=== PATIENT | female | born 1930 | race Caucasian/White ===

== ENCOUNTER 2016-09-26 12:49 | Inpatient (IN) | payer BC, MEDICARE ==
[2016-09-26 16:44] LABS: Comments Flag Yes; Hematocrit 19 % (35-47); Mean Corpuscular HGB Conc 31 g/dl (31-36); Mean Corpuscular Hemoglobin 29 pg (27-31); Mean Corpuscular Volume 93 fL (80-97); Mean Platelet Volume 8 um3 (7.4-10.4); Red Blood Count 2.09 10^6/ul (4.0-5.4); Red Cell Distribution Width 15 % (10.5-15); White Blood Count 9.1 10^3/ul (3.5-10.8)
[2016-09-26 16:45] LABS: Add Diff/Slide Review? Slide Review Added
[2016-09-26 16:47] LABS: Hemoglobin 6.1 g/dl (12.0-16.0)
[2016-09-26 16:50] LABS: Albumin 3.7 g/dL (3.2-5.2); BUN/Creatinine Ratio 27.3 (8-20); Calcium 9.9 mg/dL (8.6-10.3); EGFR African American 25.8 (>60); EGFR Non-African American 20.1 (>60); Globulin 3.3 g/dL (2-4); Potassium 4.9 mmol/L (3.5-5.0); Total Bilirubin 0.7 mg/dL (0.2-1.0)
--- NOTE | 2016-09-26 16:58 | RAD ---
INDICATION: Weakness. COMPARISON: Comparison is made with a prior chest x-ray study from January 09, 2006. TECHNIQUE: A portable view of the chest was obtained. FINDINGS: The heart is enlarged and unchanged from the prior study. The lungs are clear. No pleural effusion is seen. IMPRESSION: CARDIOMEGALY, UNCHANGED.
[2016-09-26] MEDS ORDERED: Ondansetron INJ* 2 MG/ML VIAL IV PRN (17:24)
[2016-09-26] MEDS ORDERED: Pantoprazole IV* 80 MG in NS 0.9% 250 ML* 250 ML IVPB ONE (17:24)
[2016-09-26] MEDS ORDERED: Phytonadione Oral Solution* 5 MG/25 ML UDC PO ONE (17:24)
[2016-09-26] MEDS ORDERED: Acetaminophen TAB* 325 MG PO PRN (17:24)
[2016-09-26] MEDS ORDERED: NS 0.9% 1000 ML* 1,000 ML IV SCH (17:30)
[2016-09-26] MEDS ORDERED: Pantoprazole IV* 40 MG IV ONE (17:30)
[2016-09-26] MEDS ORDERED: Pantoprazole IV* 80 MG in NS 0.9% 250 ML* 250 ML IVPB SCH (18:00)
[2016-09-26 18:20] LABS: Hypochromasia 3+
--- NOTE | 2016-09-26 20:08 | HP ---
HISTORY AND PHYSICAL:* ADDENDUM: Ms. Chen is an 86-year-old female, who is currently on Coumadin with an INR of 4, who had been having problems with anemia and today presented with hemoglobin of 6, complaining of dizziness. She also is on chronic prednisone for polymyalgia rheumatica. The patient is going to be admitted to the hospital. GI specialist is going to be consulted. For further details of the patient's admission and plan, please see history and physical dictated by Derrick Muniz NP, on 09/26/16, with which I agree. [id number]/[facility] #: [id number] MTDD
[2016-09-26] MEDS: Pantoprazole IV* 80 MG in NS 0.9% 250 ML* 250 ML IVPB SCH (20:24)
--- NOTE | 2016-09-26 21:14 | HP ---
CC: Dr. Caba; Dr. Arias * HISTORY AND PHYSICAL: DATE OF ADMISSION: 09/26/16 PRIMARY CARE PROVIDER: Dr. Caba. CONSULTING CORONER TECHNICIAN: Dr. Arias. ATTENDING PHYSICIAN: Vikki Flynn MD * (dictated by Derrick Muniz NP) CHIEF COMPLAINT: 1. Weakness. 2. Dark stools. HISTORY OF PRESENT ILLNESS: Ms. Chen is an 86-year-old female patient. She says for the last 5 to 6 weeks, she has had progressive worsening weakness. She has noticed that particularly after she had some company several weeks ago. She had some more weakness. She went to her primary back in July and it was noted that her hemoglobin was 9. She does state that she takes chronic steroids for polymyalgia rheumatica. She was on warfarin for irregular heartbeat. She has a history of stroke. The patient says that for the last few days though she has had progressive worsening weakness, dyspnea on exertion. The friend has noticed that she has been pale and with minimal exertion, she has been very fatigued. The patient says that at times, a couple of weeks ago, she noticed a tarry stool. She has also noticed at times though she has had bright red blood per rectum. She denies any abdominal pain. Denies any nausea, vomiting. No dysuria, no frequency. There is no loss of consciousness. No pruritus, no skin ulceration. She denied having any recent changes in medications. She says she has been taking her warfarin as prescribed. She came in, went to her primary today, they did note that her hemoglobin was 5.9, and they sent to her to the emergency room for evaluation. Here, it was noted her hemoglobin was 6.1, we were asked to evaluate for possible GI bleed. PAST MEDICAL HISTORY: Significant for: 1. AFib. 2. CVA. 3. Hypertension. 4. CKD. 5. PMR. PAST SURGICAL HISTORY: Denied. MEDICATIONS: Home meds according to the list that was provided include: 1. Prednisone 1 mg daily. 2. Warfarin 5 mg Thursday, Thursday, and Thursday. 3. Warfarin 2 mg p.o. Thursday and . 4. Spironolactone/hydrochlorothiazide 2 tablets p.o. q.a.m. 5. Nifedipine 60 mg daily. 6. Multivitamin 1 tablet daily. 7. Claritin 10 mg p.o. daily as needed. 8. Vitamin D 1000 units p.o. daily. 9. Atenolol 150 mg p.o. daily. 10. Aspirin 81 mg daily. ALLERGIES TO MEDICATIONS: Include no known drug allergies. FAMILY HISTORY: Her father had history of liver cancer. Mother's history is reviewed and noncontributory. SOCIAL HISTORY: She does not smoke, she does not drink. Surrogate decision maker is her son, Keyon. REVIEW OF SYSTEMS: There is no documented fever. She denied having any significant weight change. There was no double vision. She denies having any ear discharge. There is no rhinorrhea. There is no sore throat. No thyroid enlargement. She denies having any chest pain. There was no orthopnea. There is dyspnea on exertion. There is no abdominal pain. No nausea, no vomiting. No dysuria, no frequency. No seizure, no loss of consciousness. No pruritus and no skin ulcerations. Review of 14 systems completed, all others negative. PHYSICAL EXAMINATION GENERAL: At this time, Ms. Chen is an 86-year-old female patient. She is sitting in the ER stretcher. She does appear to be pale. She does not appear to be in any acute distress. VITAL SIGNS: Reveal blood pressure 107/52 with a pulse 72, respirations 18, O2 sat 100%, temperature 97.8. HEENT: Head: Atraumatic, normocephalic. Eyes: EOMs are intact. Sclerae were pale, were anicteric. Throat: Oral mucosa appeared to be dry. No oropharyngeal erythema. NECK: Supple. LUNGS: Clear to auscultation. No wheezes, rales, or rhonchi. HEART: Sounds S1, S2. Regular rate and rhythm. No murmurs, rubs, or gallops. ABDOMEN: Soft, flat, nontender. Bowel sounds present. EXTREMITIES: Pulses 2+ throughout. Able to move all 4 extremities with 5/5 strength. NEUROLOGIC: The patient is awake, she is alert, and she is oriented x3. Tongue midline. Cotton Baler were equal. No gross focal deficits. RECTAL: Did reveal maroon color stool. SKIN: Intact. DIAGNOSTIC STUDIES/LAB DATA: Labs today revealed a WBC of 9.1, RBC of 2.09, hemoglobin 6.1, hematocrit of 19, platelet count of 343. INR 3.84, PTT of 40.1. Sodium 135; potassium 4.9; chloride of 107; bicarb 19; BUN 53; creatinine is 2.31, I do see that from her previous labs in July, her creatinine was 2.3; glucose 126; calcium 9.9. Total bili 0.7, AST 21, ALT 13, alk phos 56. Albumin 3.7. She did have an EKG obtained today, which does show an atrial fibrillation at the rate of 70, no ST elevation or T-wave inversion. It was reviewed to the previous EKG, she does appear to be in AFib in the past, it was also noted on her note. She had chest x-ray obtained today that showed cardiomegaly, no acute infiltrates were noted. Old medical records were reviewed. ASSESSMENT AND PLAN: Ms. Chen is an 86-year-old female patient who is coming into the ER today with complaints of not feeling well, feeling fatigued, and on evaluation found to have anemia and concern for gastrointestinal bleed. She will be admitted under inpatient status for: 1. Acute blood loss anemia secondary to gastrointestinal bleed. I suspect at this point, she most probably has a mixed gastrointestinal bleed. It could be a portion in upper or could also be a lower gastrointestinal bleed. She did have maroon stools on exam. I did touch base with Dr. Arias, will maintain 2 IVs, Protonix drip, clear liquid diet. He will evaluate tomorrow. Serial H and Hs. I am going to give her 2 units of blood now. She is hemodynamically stable. 2. Atrial fibrillation. Her INR is supratherapeutic. We are going to go ahead and hold her Coumadin. She is rate controlled. When able, we will get her back on her nifedipine and we will continue to follow. 3. Cerebrovascular accident. Continue with secondary prevention. We are holding the aspirin for the time being. 4. Hypertension. In the setting of acute illness, I am going to hold her blood pressure meds. 5. Chronic kidney disease. Her creatinine appears to be stable. We will monitor. 6. Polymyalgia rheumatica. In the setting of acute bleed, I am going to hold the prednisone. If her pressures do become soft, I will certainly go ahead and put her on stress-dose steroids. 7. Code status. Full code. 8. Fluids, electrolytes, and nutrition. She can have a clear liquid diet. 9. DVT prophylaxis. Because of the active bleeding, she will be placed on SCDs. TIME SPENT: On the admission was 60 minutes; greater than half the time was spent [id number] with the patient obtaining my history and physical, other half the time spent going over the plan of care with the patient and implementing plan of care. I did discuss the plan of care with my attending, Dr. Flynn; she is in agreement. DERRICK MUNIZ NP ADDENDUM: Ms. Chen is an 86-year-old female, who is currently on Coumadin with an INR of 4 , who had been having problems with anemia and today presented with hemoglobin of 6, complaining of dizziness. She also is on chronic prednisone for polymyalgia rheumatica. The patient is going to be admitted to the hospital. GI specialist is going to be consulted. For further details of the patient's admission and plan, please see history and physical dictated by Derrick Muniz NP, on 09/26/16, with which I agree. VIKKI FLYNN MD [id number]/[facility] #: [id number]/[facility] #: [id number] OSWALD
[2016-09-27 02:19] LABS: Hematocrit 22 % (35-47); Hemoglobin 6.9 g/dl (12.0-16.0)
--- NOTE | 2016-09-27 02:21 | ED ---
Karla Magallanes Alfonso, scribed for Yandy Das MD on 09/26/16 at 1619 . Syncope/Near Syncope - HPI Summary HPI Summary: This patient is an 86 year old BIBA accompanied by a friend to [facility] c/o worsened generalized weakness for the last 6 weeks. She states she is dizzy. She reports standing from a chair and not being able to walk for more than 3 steps. Friend states a change in medication may have aggravated the patient's symptoms. Pt was sent to ED today by her PCP for drop in her blood count. Pt is on warfarin for afib and take prednisone for polymyalgia rheumatica. - History Of Current Complaint Chief Complaint: EDBleedingDisorder Hx Obtained From: Patient, Other: - Friend Onset/Duration: Sudden Onset, Lasting Weeks - 6 weeks, Worse Since Timing: Constant Activity At Onset: Unknown Associated Head Trauma: No Aggravating Factor(s): Other - Standing from a chair and possibily change in medication. Alleviating Factor(s): Nothing Associated Signs And Symptoms: Dizzy, Other - dark stool - Allergies/Home Medications Allergies/Adverse Reactions: Allergies Allergy/AdvReac Type Severity Reaction Status Date / Time No Known Allergies Allergy Verified 09/26/16 17:06 Home Medications: Home Medications Aspirin EC Low Dose* [Ecotrin EC Low Dose 81 MG*] 81 mg PO DAILY 09/26/16 [ History Confirmed 09/26/16] Atenolol [Tenormin 100 MG] 150 mg PO DAILY 09/26/16 [History Confirmed 09/26/16] Cholecalciferol TAB* [Vitamin D TAB*] 1,000 unit PO DAILY 09/26/16 [History Confirmed 09/26/16] LoraTADine TAB(NF) [Claritin 10 MG TAB(NF)] 10 mg PO DAILY PRN 09/26/16 [ History Confirmed 09/26/16] Multivitamins/Minerals TAB* [Theragran/minerals TAB*] 1 tab PO DAILY 09/26/16 [ History Confirmed 09/26/16] Nifedipine [Adalat cc] 60 mg PO DAILY 09/26/16 [History Confirmed 09/26/16] Spironolactone/HCTZ 25-25 MG* [Aldactazide 25-25*] 2 tab PO QAM 09/26/16 [ History Confirmed 09/26/16] Warfarin TAB(*) [Coumadin TAB(*)] 2 mg PO TUTH 09/26/16 [History Confirmed 09/26] Warfarin TAB(*) [Coumadin TAB(*)] 5 mg PO MOWEFR 09/26/16 [History Confirmed 01/04] predniSONE TAB* [Deltasone TAB*] 1 mg PO DAILY 09/26/16 [History Confirmed 09/26] PMH/Surg Hx/FS Hx/Imm Hx Endocrine/Hematology History: Reports: Hx Anticoagulant Therapy - ASA, Autoimmune Disease - PMR Cardiovascular History: Reports: Hx Hypercholesterolemia, Hx Hypertension Infectious Disease History: No Infectious Disease History: Denies: Traveled Outside the [place] in Last 30 Days - Family History Known Family History: Positive: Other - father with liver cancer - Social History Lives: Alone Alcohol Use: None Substance Use Type: Reports: None Smoking Status (MU): Never Smoked Tobacco Review of Systems Positive: Fatigue Eyes: Negative ENT: Negative Cardiovascular: Negative Respiratory: Negative Positive: Other - dark stool Genitourinary: Negative Musculoskeletal: Negative Skin: Negative Neurological: Other - Dizzy Positive: Weakness - generalized All Other Systems Reviewed And Are Negative: Yes Physical Exam Triage Information Reviewed: Yes Vital Signs On Initial Exam: Initial Vitals Temp Pulse Resp BP Pulse Ox 98.6 F 82 20 110/46 100 09/26/16 13:19 09/26/16 13:19 09/26/16 13:19 09/26/16 13:19 09/26/16 13:19 Vital Signs Reviewed: Yes Appearance: Positive: No Pain Distress, Well-Nourished, Ill-Appearing Skin: Positive: Pale Eyes: Positive: Conjunctiva Clear ENT: Positive: Normal ENT inspection Neck: Positive: Supple Respiratory/Lung Sounds: Positive: Clear to Auscultation, Breath Sounds Present , Other - No respiratory distress Cardiovascular: Positive: Pulses are Symmetrical in both Upper and Lower Extremities, IRR, Other - Brisk capillary refill. Negative: Murmur Abdomen Description: Positive: Nontender, No Organomegaly, Soft. Negative: Distended, Guarding, McBurney's Point Tenderness, Peritoneal Signs, Pulsatile Mass, Splenomegaly Bowel Sounds: Positive: Present Musculoskeletal: Positive: Strength/ROM Intact Neurological: Positive: Alert, Oriented to Person Place, Time, Other - Alert, muscle tone normal. Negative: Facial Droop, Focal Deficit @, Slurred Speech Diagnostics - Vital Signs Vital Signs Temp Pulse Resp BP Pulse Ox 09/26/16 14:30 97.8 F 71 18 108/46 100 09/26/16 13:19 98.6 F 82 20 110/46 100 - Laboratory Lab Results: Lab Results 09/26/16 09/26/16 09/26/16 Range/Units 16:05 16:05 16:05 WBC 9.1 (3.5-10.8) 10^3/ul RBC 2.09 L (4.0-5.4) 10^6/ul Hgb 6.1 L* (12.0-16.0) g/dl Hct 19 L (35-47) % MCV 93 (80-97) fL MCH 29 (27-31) pg MCHC 31 (31-36) g/dl RDW 15 (10.5-15) % Plt Count 343 (150-450) 10^3/ul MPV 8 (7.4-10.4) um3 Neut % (Auto) 82.0 (38-83) % Lymph % (Auto) 12.1 L (25-47) % Hamlin % (Auto) 5.3 (1-9) % Eos % (Auto) 0 (0-6) % Baso % (Auto) 0.6 (0-2) % Absolute Neuts (auto) 7.5 (1.5-7.7) 10^3/ul Absolute Lymphs (auto) 1.1 (1.0-4.8) 10^3/ul Absolute Monos (auto) 0.5 (0-0.8) 10^3/ul Absolute Eos (auto) 0 (0-0.6) 10^3/ul Absolute Basos (auto) 0.1 (0-0.2) 10^3/ul Absolute Nucleated RBC 0.01 10^3/ul Nucleated RBC % 0.1 Normal RBC Morphology Not Reportable Hypochromasia 3+ INR (Anticoag Therapy) 3.84 H (0.89-1.11) APTT 40.1 H (26.0-36.3) seconds Sodium 135 (133-145) mmol/L Potassium 4.9 (3.5-5.0) mmol/L Chloride 107 (101-111) mmol/L Carbon Dioxide 19 L (22-32) mmol/L Anion Gap 9 (2-11) mmol/L BUN 63 H (6-24) mg/dL Creatinine 2.31 H (0.51-0.95) mg/dL Est GFR ( Amer) 25.8 (>60) Est GFR (Non-Af Amer) 20.1 (>60) BUN/Creatinine Ratio 27.3 H (8-20) Glucose 126 H (70-100) mg/dL Calcium 9.9 (8.6-10.3) mg/dL Total Bilirubin 0.70 (0.2-1.0) mg/dL AST 21 (13-39) U/L ALT 13 (7-52) U/L Alkaline Phosphatase 56 (34-104) U/L Total Protein 7.0 (6.4-8.9) g/dL Albumin 3.7 (3.2-5.2) g/dL Globulin 3.3 (2-4) g/dL Albumin/Globulin Ratio 1.1 (1-3) Blood Type Antibody Screen Crossmatch 09/26/16 Range/Units 16:05 WBC (3.5-10.8) 10^3/ul RBC (4.0-5.4) 10^6/ul Hgb (12.0-16.0) g/dl Hct (35-47) % MCV (80-97) fL MCH (27-31) pg MCHC (31-36) g/dl RDW (10.5-15) % Plt Count (150-450) 10^3/ul MPV (7.4-10.4) um3 Neut % (Auto) (38-83) % Lymph % (Auto) (25-47) % Hamlin % (Auto) (1-9) % Eos % (Auto) (0-6) % Baso % (Auto) (0-2) % Absolute Neuts (auto) (1.5-7.7) 10^3/ul Absolute Lymphs (auto) (1.0-4.8) 10^3/ul Absolute Monos (auto) (0-0.8) 10^3/ul Absolute Eos (auto) (0-0.6) 10^3/ul Absolute Basos (auto) (0-0.2) 10^3/ul Absolute Nucleated RBC 10^3/ul Nucleated RBC % Normal RBC Morphology Hypochromasia INR (Anticoag Therapy) (0.89-1.11) APTT (26.0-36.3) seconds Sodium (133-145) mmol/L Potassium (3.5-5.0) mmol/L Chloride (101-111) mmol/L Carbon Dioxide (22-32) mmol/L Anion Gap (2-11) mmol/L BUN (6-24) mg/dL Creatinine (0.51-0.95) mg/dL Est GFR ( Amer) (>60) Est GFR (Non-Af Amer) (>60) BUN/Creatinine Ratio (8-20) Glucose (70-100) mg/dL Calcium (8.6-10.3) mg/dL Total Bilirubin (0.2-1.0) mg/dL AST (13-39) U/L ALT (7-52) U/L Alkaline Phosphatase (34-104) U/L Total Protein (6.4-8.9) g/dL Albumin (3.2-5.2) g/dL Globulin (2-4) g/dL Albumin/Globulin Ratio (1-3) Blood Type O Positive Antibody Screen Negative Crossmatch See Detail Result Diagrams: 09/26/16 16:05 09/26/16 16:05 Lab Statement: Any lab studies that have been ordered have been reviewed, and results considered in the medical decision making process. - Radiology CXR Xray Interpretation: No Acute Changes - Cardiomegaly unchanged Radiology Interpretation Completed By: Radiologist - EKG 1638 Cardiac Rate: NL - 70 bpm EKG Rhythm: Atrial Fibrillation EKG Interpretation: Nl IV CT, Q wave in lead 3, no acute changes Course/Dx Assessment/Plan: Pt is an 86 y/o F BIBA who presents to ED c/o worsening generalized weakness for 6 weeks as well as acute dizziness. Friends reports a recent change in medications, which may have aggravated sx. Hgb 6.1. RBC 2.09. Hct 19. CXR reveal no acute findings. EKG reveals A-Fib. Pt to be admitted for further evaluation and treatment of severe probable blood loss anemia with supratherapeutic INR while on ASA, warfarin and prednisone. Allergies noted. Patient medications reviewed this visit. - Diagnoses Differential Diagnosis/HQI/PQRI: Positive: GI Bleed, Hypovolemia, Medication Reaction Provider Diagnoses: Anemia, Supratherapeutic INR, Vertigo - Physician Notifications Instructed by Provider To: Admit As Inpatient - Critical Care Time Critical Care Time: 30-74 min Discharge - Discharge Plan Condition: Stable Disposition: ADMITTED TO [facility] The documentation as recorded by the Karla lai Alfonso accurately reflects the service I personally performed and the decisions made by Thiago bob Barbara J, MD.
[2016-09-27 02:26] LABS: Comments Flag Yes
[2016-09-27 06:08] LABS: Hematocrit 22 % (35-47); Hemoglobin 7.3 g/dl (12.0-16.0); Mean Corpuscular HGB Conc 32 g/dl (31-36); Mean Corpuscular Hemoglobin 30 pg (27-31); Mean Corpuscular Volume 92 fL (80-97); Mean Platelet Volume 9 um3 (7.4-10.4); Red Blood Count 2.45 10^6/ul (4.0-5.4); Red Cell Distribution Width 15 % (10.5-15); White Blood Count 6.3 10^3/ul (3.5-10.8)
[2016-09-27 06:22] LABS: BUN/Creatinine Ratio 27.7 (8-20); EGFR African American 29.4 (>60); EGFR Non-African American 22.9 (>60); Potassium 3.7 mmol/L (3.5-5.0)
[2016-09-27] MEDS: Pantoprazole IV* 80 MG in NS 0.9% 250 ML* 250 ML IVPB SCH ×2 (06:53→18:36)
[2016-09-27] MEDS ORDERED: Phytonadione Oral Solution* 5 MG/25 ML UDC PO ONE (13:00)
--- NOTE | 2016-09-27 13:33 | CONS ---
GASTROENTEROLOGY CONSULT: DATE: 09/27/16 CONSULTING PHYSICIAN: Vikki Flynn REASON FOR CONSULTATION: GI bleed and atrial fibrillation, on warfarin, with presenting INR of 3.84. HISTORY: This very pleasant 86-year-old woman, who has never had gastrointestinal problems in general and has never had endoscopy, says that she began feeling short of breath with exertion and dizzy about 3 weeks ago. Her stool would be intermittently dark. She will intermittently see a little red blood in it. It would be dark. There was no abdominal pain. Her appetite was still okay and she had no nausea or vomiting. The weakness just became so severe that her friend insisted that she go to the primary office and she was sent to the emergency room when her hemoglobin was 6. Since admission, she has not had bowel movement for the first 16 hours, but then just, within the last hour, passed a small stool with a little bit of red blood around the edge. She has received 2 units of transfusion and her hemoglobin went from 6.1 to 6.9 to 7.3. She has not been feeling dizzy. She has been feeling better. She was given vitamin K and repeat INR was 3.15. BUN was 63, creatinine 2.31 on admission. Again, she has never had endoscopy or colonoscopy. She has not had any surgery other than a . PAST MEDICAL HISTORY: 1. Hypertension - Emergency room visit in 2005 and admission where AFib was found. 2. Atrial fibrillation - placed on warfarin then. She has not had any obvious problems with it. She does not recall any intervals of having to skip it for multiple days or being given vitamin K. 3. Status post . 4. Polymyalgia rheumatica - on prednisone for a number of years, currently 1 mg. SOCIAL HISTORY: She is retired, , and has one son who is at [employer] in animal science - nutrition ([employer] 1976). She has a friend who looks in on her, Savi Harper, who was her banker originally. FAMILY HISTORY: Her father had a liver cancer, expiring at age 79, "even though he did not drink a day in his life." REVIEW OF SYSTEMS: No history of prior syncope, palpitations, PA, valvular disease, congestive failure, hepatitis, jaundice, TB, or hemoptysis. PHYSICAL EXAMINATION: She is an elderly woman, quite alert, moderately overweight, in no distress. She is oriented x3, and tries to get her friend to answer the questions, but she is really pretty good with the answers if she is given a little time. HEENT exam is unremarkable. Again, she is pale. She has no adenopathy. Her lungs are clear and heart sounds are regular. Breast and pelvic exams are deferred. The abdomen is symmetric, obese, soft, and without tenderness. Rectal deferred to the procedure. Extremities show no edema. IMPRESSION: Gastrointestinal bleeding in a patient on warfarin that is over therapeutic, she will get that reversed, and has all signs point to an upper source with her being on prednisone and a baby aspirin and BUN being up. Endoscopy will be done once her INR is much better. Whether to do a f/u colonoscopy will depend on her hemoccult status. [id number]/[facility] #: [id number] OSWAL[facility]
--- NOTE | 2016-09-27 14:53 | PN ---
Subjective Date of Service: 09/27/16 Interval History: Patient seen and examined at bedside. Pt states that she is feeling better when compared to her arrival. Denies fever, chills, lightheadedness or dizziness, shortness of breath, chest discomfort, and N/V/D. Pt reports continued bright red blood in a stool she had earlier today. She also reports dark stools prior to her admission. Tele: Afib/flutter,rate 70-80's. Family History: Unchanged from Admission Social History: Unchanged from Admission Past Medical History: Unchanged from Admission Objective Active Medications: Acetaminophen (Tylenol Tab*) 650 mg PO Q4H PRN Reason: FEVER/PAIN Sodium Chloride (Ns 0.9% 1000 Ml*) 1,000 mls @ 100 mls/hr IV PER RATE RODRIGO Pantoprazole Sodium 80 mg/ (Sodium Chloride) 250 mls @ 25 mls/hr IVPB Q10H RODRIGO Ondansetron HCl (Zofran Inj*) 4 mg IV Q6H PRN Reason: NAUSEA Vital Signs 09/26/16 09/26/16 09/26/16 19:20 19:29 20:00 Temperature 97.2 F 97.2 F Pulse Rate 89 89 Respiratory 16 16 16 Rate Blood Pressure 129/96 129/96 (mmHg) O2 Sat by Pulse 100 100 Oximetry 09/26/16 09/26/16 09/26/16 21:50 22:18 23:57 Temperature 97.7 F 97.8 F Pulse Rate 87 68 Respiratory 17 20 Rate Blood Pressure 126/53 108/36 (mmHg) O2 Sat by Pulse 97 100 98 Oximetry 09/27/16 09/27/16 09/27/16 03:13 07:23 08:00 Temperature 97.7 F Pulse Rate 95 68 Respiratory 20 18 16 Rate Blood Pressure 132/45 127/41 (mmHg) O2 Sat by Pulse 100 98 Oximetry 09/27/16 09/27/16 08:44 11:30 Temperature Pulse Rate 84 Respiratory 18 Rate Blood Pressure 133/44 (mmHg) O2 Sat by Pulse 100 98 Oximetry Oxygen Devices in Use Now: None Appearance: NAD, laying in bed Eyes: No Scleral Icterus Ears/Nose/Mouth/Throat: Mucous Membranes Moist Respiratory: Symmetrical Chest Expansion and Respiratory Effort, Clear to Auscultation Cardiovascular: NL Sounds; No Murmurs; No JVD, RRR Abdominal: NL Sounds; No Tenderness; No Distention Extremities: No Edema Skin: No Rash or Ulcers Neurological: Alert and Oriented x 3 Lines/Tubes/Other Access: Clean, Dry and Intact Peripheral IV - site benign Nutrition: Taking PO's Result Diagrams: 09/27/16 15:30 09/27/16 05:19 Additional Lab and Data: Microbiology and Other Data: Microbiology 09/26/16 17:09 Stool Occult Blood (SHY) - Final Stool Assess/Plan/Problems-Billing Assessment: Ms. Chen is an 86 yo female with PMH significant for afib, HTN, CKD and PMR who presented to the emergency room with complaints of fatigue and upon evaluation was found to be anemic with concern for a GI bleed. - Patient Problems (1) GI bleed Code(s): K92.2 - GASTROINTESTINAL HEMORRHAGE, UNSPECIFIED SNOMED Code(s): 53674029 Comment: - Pt recieved 2 units RBCs last night - HH stable - GI consult, input appreciated - Plan for EGD in AM - Continue Protonix gtt (2) Afib Code(s): I48.91 - UNSPECIFIED ATRIAL FIBRILLATION SNOMED Code(s): 47989535 Comment: - Rate controlled - INR is supratherapeutic, received a dose of Vit k last night and another one today - Will consider resuming metoprolol in AM with hold parameters (3) HTN (hypertension) Code(s): I10 - ESSENTIAL (PRIMARY) HYPERTENSION SNOMED Code(s): 83935567 Comment: - Normotensive - Hold medications for now (4) History of CVA (cerebrovascular accident) Code(s): Z86.73 - PRSNL HX OF TIA (TIA), AND CEREB INFRC W/O RESID DEFICITS SNOMED Code(s): 841428616 Comment: - Hold ASA in the setting of GI bleeding (5) CKD (chronic kidney disease) Code(s): N18.9 - CHRONIC KIDNEY DISEASE, UNSPECIFIED SNOMED Code(s): 477164874 Comment: - Creatinine appears to be at baseline - Continue to follow (6) PMR (polymyalgia rheumatica) Code(s): M35.3 - POLYMYALGIA RHEUMATICA SNOMED Code(s): 47372161 Comment: - Hold prednisone in the setting of GI bleed - If blood pressure becomes soft will start stress dose steroids (7) DVT prophylaxis Code(s): ZPQ8883 - SNOMED Code(s): 006426739 Comment: - INR supratherapeutic - Chemical DVT prophylaxis contraindicated in getting of a GI bleed - SCDs (8) Full code status Code(s): Z78.9 - OTHER SPECIFIED HEALTH STATUS SNOMED Code(s): 999865231 Status and Disposition: Inpatient. Discharge to home when medically stable.
[2016-09-27 15:38] LABS: Hematocrit 25 % (35-47); Hemoglobin 8.1 g/dl (12.0-16.0)
[2016-09-28 07:01] LABS: Hematocrit 26 % (35-47); Hemoglobin 8.6 g/dl (12.0-16.0); Mean Corpuscular HGB Conc 33 g/dl (31-36); Mean Corpuscular Hemoglobin 29 pg (27-31); Mean Corpuscular Volume 88 fL (80-97); Mean Platelet Volume 8 um3 (7.4-10.4); Red Blood Count 2.98 10^6/ul (4.0-5.4); Red Cell Distribution Width 17 % (10.5-15); White Blood Count 6.4 10^3/ul (3.5-10.8)
[2016-09-28 07:16] LABS: BUN/Creatinine Ratio 23.9 (8-20); Calcium 8.5 mg/dL (8.6-10.3); EGFR African American 34.4 (>60); EGFR Non-African American 26.7 (>60); Potassium 3.5 mmol/L (3.5-5.0)
[2016-09-28] MEDS ORDERED: Pantoprazole IV* 80 MG in NS 0.9% 250 ML* 250 ML IVPB SCH (08:30)
[2016-09-28] MEDS: Pantoprazole IV* 80 MG in NS 0.9% 250 ML* 250 ML IVPB SCH (09:45)
[2016-09-28] MEDS ORDERED: Midazolam* 1 MG/ML 5 ML VIAL (5 MG) ONE (10:02)
[2016-09-28] MEDS ORDERED: Meperidine SYRINGE* 50 MG/ML ONE (10:03)
--- NOTE | 2016-09-28 13:42 | PN ---
Subjective Date of Service: 09/28/16 Interval History: Patient seen and examined at bedside. Pt states that she is feeling well. Denies fever, chills, lightheadedness or dizziness, shortness of breath, chest discomfort, N/V/D. Pt states that she had a brown colored BM earlier today. Denies further signs of bleeding. Tele: Afib/flutter, rate 80-90's. Pt noted have a 2.03 second pause overnight. Family History: Unchanged from Admission Social History: Unchanged from Admission Past Medical History: Unchanged from Admission Objective Active Medications: Acetaminophen (Tylenol Tab*) 650 mg PO Q4H PRN Reason: FEVER/PAIN Sodium Chloride (Ns 0.9% 1000 Ml*) 1,000 mls @ 100 mls/hr IV PER RATE RODRIGO Pantoprazole Sodium 80 mg/ (Sodium Chloride) 250 mls @ 25 mls/hr IVPB Q10H RODRIGO Ondansetron HCl (Zofran Inj*) 4 mg IV Q6H PRN Reason: NAUSEA Vital Signs 09/27/16 09/27/16 09/27/16 15:12 19:30 20:00 Temperature 99.2 F 98.3 F Pulse Rate 71 75 Respiratory 16 20 19 Rate Blood Pressure 129/49 119/41 (mmHg) O2 Sat by Pulse 98 98 Oximetry 09/27/16 09/28/16 09/28/16 23:18 03:43 04:17 Temperature 97.6 F 97.6 F Pulse Rate 75 81 Respiratory 16 16 Rate Blood Pressure 136/57 126/64 (mmHg) O2 Sat by Pulse 100 95 100 Oximetry 09/28/16 09/28/16 09/28/16 07:26 07:35 08:00 Temperature 98.2 F Pulse Rate 88 Respiratory 16 18 Rate Blood Pressure 149/54 (mmHg) O2 Sat by Pulse 99 99 Oximetry Oxygen Devices in Use Now: None Appearance: NAD, sitting up on the side of the bed Eyes: No Scleral Icterus Ears/Nose/Mouth/Throat: Mucous Membranes Moist Respiratory: Symmetrical Chest Expansion and Respiratory Effort, Clear to Auscultation Cardiovascular: NL Sounds; No Murmurs; No JVD, RRR Abdominal: NL Sounds; No Tenderness; No Distention Extremities: No Edema Skin: No Rash or Ulcers Neurological: Alert and Oriented x 3, NL Muscle Strength and Tone Lines/Tubes/Other Access: Clean, Dry and Intact Peripheral IV - site benign Nutrition: Taking PO's Result Diagrams: 09/28/16 06:49 09/28/16 06:49 Additional Lab and Data: Microbiology and Other Data: Microbiology 09/26/16 17:09 Stool Occult Blood (SHY) - Final Stool Assess/Plan/Problems-Billing Assessment: Ms. Chen is an 86 yo female with PMH significant for afib, HTN, CKD and PMR who presented to the emergency room with complaints of fatigue and upon evaluation was found to be anemic with concern for a GI bleed. - Patient Problems (1) GI bleed Code(s): K92.2 - GASTROINTESTINAL HEMORRHAGE, UNSPECIFIED SNOMED Code(s): 53041249 Comment: - Pt recieved 2 units RBCs on 09/26 stable - GI consult, input appreciated - S/P EGD today, appears to be gastritis - Stop protonix gtt and start omeprazole 40 mg daily (2) Acute blood loss anemia Code(s): D62 - ACUTE POSTHEMORRHAGIC ANEMIA SNOMED Code(s): 723168410 Comment: - Received 2 units RBCs on 09/26 stable (3) Afib Code(s): I48.91 - UNSPECIFIED ATRIAL FIBRILLATION SNOMED Code(s): 96581802 Comment: - Rate controlled - INR therapeutic (GI would like INR 1.5-2.0) - Resume metoprolol - Hold warfarin for 1 week, plan to resume in 1 week if heme negative (4) HTN (hypertension) Code(s): I10 - ESSENTIAL (PRIMARY) HYPERTENSION SNOMED Code(s): 20403118 Comment: - Normotensive - Resume home medications (5) History of CVA (cerebrovascular accident) Code(s): Z86.73 - PRSNL HX OF TIA (TIA), AND CEREB INFRC W/O RESID DEFICITS SNOMED Code(s): 554042732 Comment: - Hold ASA, resume in 1 week (6) CKD (chronic kidney disease) Code(s): N18.9 - CHRONIC KIDNEY DISEASE, UNSPECIFIED SNOMED Code(s): 638790141 Comment: - Creatinine appears to be at baseline - Continue to follow (7) PMR (polymyalgia rheumatica) Code(s): M35.3 - POLYMYALGIA RHEUMATICA SNOMED Code(s): 43893207 Comment: - Resume prednisone (8) DVT prophylaxis Code(s): XVO8275 - SNOMED Code(s): 180445736 Comment: (9) Full code status Code(s): Z78.9 - OTHER SPECIFIED HEALTH STATUS SNOMED Code(s): 441812604 Status and Disposition: Inpatient. Discharge to home when medically stable.
[2016-09-28 15:42] VITALS: BP 116/41
[2016-09-28] MEDS ORDERED: Omeprazole CAP* 20 MG PO SCH (16:00)
--- NOTE | 2016-09-29 01:10 | PRO ---
DATE: 09/28/16 - ROOM #[id number] REFERRING PHYSICIAN: Neville Caba MD* PROCEDURE: Upper gastrointestinal endoscopy and CLOtest from gastric body. INDICATION: This 86-year-old woman came in with hemoglobin in the 6s and an INR of 3.84. She had melenic stool and a BUN of 63. She has had some dark stools, but no active bleeding evident over the last 24 hours. Her INR has been reversed at 1.56 and after 3 units transfusion, the hemoglobin 8.6. See separate consultation. ENDOSCOPIST: Dr. Arias. MEDICATIONS: Midazolam 3, meperidine 25. FINDINGS: She is a healthy-appearing woman, appearing younger than stated age, and quite vigorous. Her abdomen is soft and nontender. EGD: Larynx - narrow and she is quite a gagger and not seen. Esophagus - easily entered. The mucosa is normal in the upper, mid, and lower esophagus with a slight ring at the EG junction at 37 where there has been a exerk-bi-zmuehnje hiatal hernia. No blood is seen. There are no erosions or chronic changes. Stomach - xhfho-ob-nrxnon hiatal hernia, but generally normal mucosa in the cardia and fundus. The body is normal with normal rugal folds. There was no blood, no wispy gastritis. The gastric antrum is rather contracted and spastic and there is evident of a gnaz-zt-aeisjsra superficial gastritis, though erosions are quite small. There is no active bleeding. The pylorus appears normal. Duodenum - the bulb has some mild erosions. There are no scars or areas of bleeding. The second through fourth portions of the duodenum are normal. IMPRESSION: 1. Antral gastritis - presumably bled when the INR was above target. 2. Duodenitis - very mild, but may have contributed somewhat to bleeding. 3. Opgdt-zk-fomklw hiatal hernia - no active peptic changes and the patient has no active peptic symptoms. 4. Anemia and history of atrial fibrillation, on warfarin - my recommendation is to restart aspirin in a few days. Start a PPI daily and continue it probably indefinitely. Take no NSAIDs in a week or 10 days following up with her primary. If heme negative, can restart warfarin with a target of 1.5 to 2 and then monitor her Hemoccult status. She can restart her oral iron in the form of low dose multivitamin 60 mg once or twice a day. Would advise against iron tablets because of probable intolerance. [id number]/[facility] #: [id number] [facility]
--- NOTE | 2016-09-29 03:15 | DS ---
CC: Dr. Neville Caba; Dr. Dominic Arias * DISCHARGE SUMMARY: DATE OF ADMISSION: 09/26/16 DATE OF DISCHARGE: 09/28/16 ATTENDING PHYSICIAN: Dr. Rock Burr * (dictated by Merrick Perdomo NP). PRIMARY CARE PROVIDER: Dr. Neville Caba. CONSULTATIONS WHILE IN THE HOSPITAL: Dr. Dominic Arias with Gastroenterology. PROCEDURES WHILE IN THE HOSPITAL: Status post upper endoscopy with Dr. Dominic Arias on 09/28/16. STUDIES WHILE IN THE HOSPITAL: Chest x-ray on 09/26/16. Radiologist's impression: Cardiomegaly, unchanged. DISCHARGE MEDICATIONS: New home medications: 1. Omeprazole 40 mg oral twice daily. 2. Multivitamin with 16 mg of iron 1 tablet oral twice daily. Continued home medications: 1. Loratadine 10 mg oral daily as needed for allergy symptoms. 2. Vitamin D 1000 units oral daily. 3. Nifedipine 60 mg mg oral daily. 4. Atenolol 150 mg oral daily. 5. Prednisone 1 mg oral daily. 6. Spironolactone/hydrochlorothiazide 25/25 two tablets oral every morning. Medications on hold: 1. Aspirin 81 mg. 2. Warfarin. HISTORY OF PRESENT ILLNESS/HOSPITAL COURSE: Ms. Chen is an 86-year-old female with past medical history significant for atrial fibrillation, on warfarin; cerebrovascular accident, hypertension; chronic kidney disease; and polymyalgia rheumatica who presented to the emergency room for evaluation of 5 to 6 weeks of progressive weakness. The patient was noted to be anemic back in July when she had seen her primary care provider. The patient had felt though that over the last few days, her weakness had gotten worse and she was noticing dyspnea on exertion. The patient's friend had noticed that she looked pale and with minimal exertion, she was becoming very fatigued. The patient reported a couple of weeks ago noticing tarry stool and had also noticed at time she had had bright red blood per rectum. The patient denied any abdominal pain, nausea , vomiting or urinary symptoms. The patient presented to the emergency room for further evaluation of her symptoms. While in the emergency room, the patient was noted to have a hemoglobin of 5.9 and a hematocrit of 19. The Hospitalists were asked to evaluate the patient for admission. While in the hospital, the patient initially received 2 units of packed red blood cells. Her hemoglobin and hematocrit were trended. This did improve to a hemoglobin of 8.6 and hematocrit of 26 on the day of discharge. The patient was also found to have a supratherapeutic INR on admission. She received 2 doses of vitamin K bringing her INR down to 1.56. The patient was seen in consultation by Dr. Dominic Arias with Gastroenterology, who recommended an upper endoscopy to evaluate for possibility of a gastric ulcer. The patient was also found to have positive stool for occult blood. On 09/28/16, the patient underwent an upper endoscopy with Dr. Arias revealing no ulcers, but _ ____ show gastritis. The patient's Protonix drip was discontinued. She was given omeprazole 40 mg. The patient no longer was having lightheadedness or dizziness with ambulating. Her dyspnea with exertion had resolved. It was felt that the patient was stable for discharge to home today. Ms. Chen is stable for discharge to home today. Vital signs are as follows: Temperature 97.9, heart rate 74. Respiratory rate 20, O2 saturation 98% on room air, blood pressure 116/41. DISCHARGE PLAN: Ms. Chen will be discharged to home. ACTIVITY: As tolerated. DIET: The patient has been recommended to eat a bland diet for a few days and the return to her usual diet. As far as the patient's gastritis, she has been started on omeprazole 40 mg oral daily. It is recommended that the patient hold her aspirin for 1 week and then she may resume. The patient has been advised to avoid NSAIDs. The patient should be rechecked in a week to see if she has a guaiac positive stool. If she does not have a guaiac positive stool, it is recommended that her work can be restarted with a target therapeutic range of 1.5 to 2.0. It has been recommended the patient also start on a multivitamin containing 16 mg of iron twice daily. The patient can follow up with Dr. Arias with Gastroenterology in one week if she would like. The patient has been asked to call her primary care provider, Dr. Caba, for a followup appointment in the next week. The patient has been asked to return to the emergency room for any chest pain, shortness of breath or signs of bleeding. This is a summarized report of a complex medical history and hospital stay. For further details, please see the entire medical record. TIME SPENT: Time for this discharge was approximately 50 minutes, 25 minutes were spent khiq-[id number] with the patient discussing discharge plans and instructions. CONDITION ON DISCHARGE: Stable. MERRICK CHENEY NP [id number]/[facility] #: [id number] [facility]
== END 2016-09-28 16:40 | disposition home or self-care (01) | DRG 812 ==
LOC: ED 12:49 → MEDTELE 16:52
PROVIDERS: ADMIT Internal Medicine; ATTEND Internal Medicine
PROC: 0DB68ZX Excision of Stomach, Via Natural or Artificial Opening Endoscopic, Diagnostic (ICD-10-PCS; 2016-09-26)
PROC: 0DBA8ZX Excision of Jejunum, Via Natural or Artificial Opening Endoscopic, Diagnostic (ICD-10-PCS; 2016-09-26)
PROC: 30233N1 Transfusion of Nonautologous Red Blood Cells into Peripheral Vein, Percutaneous Approach (ICD-10-PCS; principal; 2016-09-27)
DX: D62 Acute posthemorrhagic anemia (principal); I49.5 Sick sinus syndrome; I48.91 Unspecified atrial fibrillation; K92.1 Melena; M35.3 Polymyalgia rheumatica; E78.00 Pure hypercholesterolemia, unspecified; Z80.0 Family history of malignant neoplasm of digestive organs; R79.1 Abnormal coagulation profile; T45.515A Adverse effect of anticoagulants, initial encounter; K44.9 Diaphragmatic hernia without obstruction or gangrene; K29.30 Chronic superficial gastritis without bleeding; K29.80 Duodenitis without bleeding; Z79.52 Long term (current) use of systemic steroids; Z86.73 Personal history of transient ischemic attack (TIA), and cerebral infarction without residual deficits; N18.9 Chronic kidney disease, unspecified; I12.9 Hypertensive chronic kidney disease with stage 1 through stage 4 chronic kidney disease, or unspecified chronic kidney disease; E66.3 Overweight; Z68.32 Body mass index [BMI] 32.0-32.9, adult
CPT/HCPCS: 36415; 71010; 80048; 80053; 82272; 85014; 85018; 85025; 85610; 85730; 86850; 86900; 86901; 86922; 87077; 93005; 94760; A9270-GY; J2250; P9040

== ENCOUNTER 2016-10-03 14:11 | Inpatient (IN) | payer MEDICARE ==
[2016-10-03] MEDS ORDERED: Ondansetron INJ* 2 MG/ML VIAL IV ONE ×2 (14:33→15:13)
[2016-10-03] MEDS ORDERED: HYDROmorphone* 1 MG/ML 1 ML SYR IV ONE ×2 (14:33→15:13)
[2016-10-03 15:10] LABS: Hematocrit 24 % (35-47); Hemoglobin 7.7 g/dl (12.0-16.0); Mean Corpuscular HGB Conc 32 g/dl (31-36); Mean Corpuscular Hemoglobin 28 pg (27-31); Mean Corpuscular Volume 88 fL (80-97); Mean Platelet Volume 8 um3 (7.4-10.4); Red Blood Count 2.76 10^6/ul (4.0-5.4); Red Cell Distribution Width 16 % (10.5-15); White Blood Count 10.7 10^3/ul (3.5-10.8)
[2016-10-03] MEDS ORDERED: NS 0.9% 1000 ML* 1,000 ML IV ONE (15:13)
[2016-10-03 15:26] LABS: Albumin 3.4 g/dL (3.2-5.2); BUN/Creatinine Ratio 26.7 (8-20); C Reactive Protein 14.27 mg/L (< 5.00); Calcium 8.4 mg/dL (8.6-10.3); EGFR African American 31.4 (>60); EGFR Non-African American 24.4 (>60); Globulin 3.1 g/dL (2-4); Potassium 3.6 mmol/L (3.5-5.0); Total Bilirubin 0.6 mg/dL (0.2-1.0); Total Protein 6.5 g/dL (6.4-8.9)
[2016-10-03 15:27] LABS: Troponin I 0.01 ng/mL (<0.04)
--- NOTE | 2016-10-03 17:58 | HP ---
History of Present Illness - History of Present Illness Reason for Visit: Abdominal pain History of Present Illness: This is a 86 yo white female with PMH of Afib, Cerebrovascular accident, HTN, CKD, and Polymyalgia rheumatica that presents to the ER today with complaint of abdominal pain. Patient was just recently discharged from the hospital on 09/28 with GI bleeding after having weakness for around 6 weeks prior. Per report from discharge summary, patient was given 2 units packed RBCs after H&H of 5.9/ 19 and values were trended. Patient was evaluated with endoscopy per Dr. Arias which revealed no ulcers, but showed gastritis. Patient was discharge when stable and instructed to discontinue ASA and Coumadin. Patient presents today with periumbillical pain that does not radiate and has been gradually been getting worse that started around 12:30. She reports normal bowel movements 1x/daily without hematochezia or melena. She denies any constipation or diarrhea. She admits to nausea that has since subsided since initiation of IV Zofran. Denies any vomiting. Her last meal and liquids was this morning and she states she has decreased appetite. She admits to some gas and bloating. 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 Endoscopy done last admission showed gastritis. Review of Systems - Review of Systems Other: General: Positive for decreased appetite. Denies sweats, chills malaise. Heart: Denies chest pain, palpitations Lungs: Denies SOB, cough Abdomen: Positive for nausea, abdominal pain Denies hematochezia, melena, constipation, diarrhea, vomiting, changes in BM frequency/color/smell. Extremities: Denies edema. - Medications/Allergies Allergies/Adverse Reactions: Allergies Allergy/AdvReac Type Severity Reaction Status Date / Time No Known Allergies Allergy Verified 10/03/16 16:48 Medications: Active Medications: Acetaminophen (Tylenol Tab*) 650 mg PO Q4H PRN PRN Reason: FEVER/PAIN Ondansetron HCl (Zofran Inj*) 4 mg IV Q4H PRN PRN Reason: NAUSEA/VOMITING Home Medications Medication Instructions Recorded Confirmed Type Cholecalciferol TAB* [Vitamin D 1,000 unit PO DAILY 09/26/16 10/03/16 History TAB*] LoraTADine TAB(NF) [Claritin 10 MG 10 mg PO DAILY PRN 09/26/16 10/03/16 History TAB(NF)] Nifedipine [Adalat cc] 60 mg PO DAILY 09/26/16 10/03/16 History predniSONE TAB* [Deltasone TAB*] 1 mg PO DAILY 09/26/16 10/03/16 History Multivitamins/Minerals TAB* 1 tab PO BID #0 09/28/16 10/03/16 Rx [Theragran/minerals TAB*] Omeprazole CAP* [Prilosec CAP* 20 40 mg PO 0600 #60 cap 09/28/16 10/03/16 Rx MG] Atenolol TAB* [Tenormin TAB* 50 MG] 150 mg PO DAILY 10/03/16 10/03/16 History Spironolactone/HCTZ 25-25 MG* 2 tab PO QAM 10/03/16 10/03/16 History [Aldactazide 25-25*] *Note that patient has not taken her ASA and Coumadin since before last admission. Exam - Exam Vital Signs: 10/03/16 10/03/16 16:30 17:00 Pulse Rate 78 69 Respiratory 20 17 Rate Blood Pressure 134/59 130/57 (mmHg) O2 Sat by Pulse 98 100 Oximetry General: Patient is an elderly women in NAD lying in a hospital stretcher that is friendly and cooperative with examination. Heart: RRR, Grade 2 blowing murmur in left sternal border was appreciated. Otherwise no rubs or gallops. Lungs: Chest is symmetric and clear to auscultation. Abdomen: Abdomen is with out scars or striations. Bowel sounds are heard in all 4 quadrants. Abdomen is soft and tender to palpation in periumbilical region. Neuro: Pupils are reactive to direct and consensual light bilaterally, EOMI. Patient is able to puff out cheeks, frown, shut eyes, smile, shown teeth, and stick out tongue. Romberg test was negative. Finger to nose test intact. Sensation intact throughout. Extremities: lower legs are edematous without pitting. Legs are notable rubor in color. Dorsalis pedis and posterior tibialis unable to be palpated. Assessment/Plan - Assessment/Plan Assessment: Assessment/Plan: 1) Abdominal Pain: Patient will be admitted to medtele unit for observation and to trend H&H Q [address] scan has been ordered and awaiting results. IV Zofran will be continued for any nausea. DDX: GI Bleed: Endoscopy was done one week ago without findings of ulceration. Patient has not noticed any blood in her stools and H&H currently 7.7/24 and will be trended. SBO: Patient has been making regular BM 1x/daily and denies any constipation. Ischemic Bowel: Patient was in mild pain with palpation on exam and appeared in no acute distress and lactic acid is WNL. Cardiac causation: patient will be monitored on telemetry and troponins trended to observe for cardiac etiology. Diverticulitis: Patient reports nausea but no vomiting and pain that has only been present for a few hours and abdominal pelvic CT will help rule in/out. 2) Afib: Continue holding patients ASA and Warfarin. Patient will be placed on continuous telemetry and troponins will be trended Q [address] depression in leads V4-V6, Repeat EKG in the morning. 3) HTN: Monitor vitals Q 4 hours. Continue Atenolol but hold Nifedipine and Spironolactone/HCTZ 25/25. 4) Hyperglycemia: Hemoglobin A1C ordered and if abnormal follow up with blood glucose monitoring. 5) CKD: Repeat CMP Q AM. 6) GERD: Continue Omeprazole. 7) Polymyalgia Rheumatica: Patient has chronic prednisone use but is below the threshold for stress doing therefore continue prednisone 1mg. 8) DVT prophylaxis: CI in this patient due to recent hx of GI bleeding. Use compression stockings. 9) Code Status: Full code. 10) Health care proxy: Patient's son. Disposition: Patient will be admitted to medtele unit and be followed by hospitalist group. Lab Results - Lab Results Lab Results: 10/03/16 10/03/16 10/03/16 15:00 15:00 15:00 WBC 10.7 RBC 2.76 L Hgb 7.7 L Hct 24 L MCV 88 MCH 28 MCHC 32 RDW 16 H Plt Count 267 MPV 8 Neut % (Auto) 88.8 H Lymph % (Auto) 5.7 L Davie % (Auto) 4.9 Eos % (Auto) 0.1 Baso % (Auto) 0.5 Absolute Neuts (auto) 9.5 H Absolute Lymphs (auto) 0.6 L Absolute Monos (auto) 0.5 Absolute Eos (auto) 0 Absolute Basos (auto) 0 Absolute Nucleated RBC 0 Nucleated RBC % 0 INR (Anticoag Therapy) Sodium 136 Potassium 3.6 Chloride 109 Carbon Dioxide 17 L Anion Gap 10 BUN 52 H Creatinine 1.95 H Est GFR ( Amer) 31.4 Est GFR (Non-Af Amer) 24.4 BUN/Creatinine Ratio 26.7 H Glucose 183 H Lactic Acid 1.2 Calcium 8.4 L Total Bilirubin 0.60 AST 20 ALT 14 Alkaline Phosphatase 52 Total Creatine Kinase 49 Troponin I 0.01 C-Reactive Protein 14.27 H Total Protein 6.5 Albumin 3.4 Globulin 3.1 Albumin/Globulin Ratio 1.1 Lipase 105 H // 15:30 WBC RBC Hgb Hct MCV MCH MCHC RDW Plt Count MPV Neut % (Auto) Lymph % (Auto) Davie % (Auto) Eos % (Auto) Baso % (Auto) Absolute Neuts (auto) Absolute Lymphs (auto) Absolute Monos (auto) Absolute Eos (auto) Absolute Basos (auto) Absolute Nucleated RBC Nucleated RBC % INR (Anticoag Therapy) 0.94 Sodium Potassium Chloride Carbon Dioxide Anion Gap BUN Creatinine Est GFR ( Amer) Est GFR (Non-Af Amer) BUN/Creatinine Ratio Glucose Lactic Acid Calcium Total Bilirubin AST ALT Alkaline Phosphatase Total Creatine Kinase Troponin I C-Reactive Protein Total Protein Albumin Globulin Albumin/Globulin Ratio Lipase EKG: Atrial fibrillation with normal axis with PVC. Concern for ST depression in leads V4-V6.
--- NOTE | 2016-10-03 18:10 | RAD ---
CLINICAL HISTORY: Diffuse abdominal pain COMPARISON: None TECHNIQUE: Multiple contiguous axial CT scans were obtained of the abdomen and pelvis, without intravenous contrast enhancement. Coronal and sagittal multiplanar reformations are submitted for review. Oral contrast was administered. FINDINGS: The study is limited by the lack of intravenous contrast. This limits evaluation of the solid organs and vasculature. LUNG BASES: The lung bases are clear. LIVER: The liver is normal in shape, size, contour, and attenuation. BILE DUCTS: There is no intrahepatic or extrahepatic biliary dilatation. GALLBLADDER: A gallstone is noted. There is no pericholecystic inflammatory change PANCREAS: The pancreas is normal, without mass or ductal dilatation. SPLEEN: Normal in size and appearance. UPPER GI TRACT: Evaluation of the gastrointestinal tract is limited by incomplete gastric distention. The upper GI tract is unremarkable. SMALL BOWEL AND MESENTERY: The small bowel is normal in contour, course, and caliber. There is no obstruction or dilatation. COLON: There are scattered diverticula of the sigmoid colon. There is no pericolonic inflammatory change. ADRENALS: Normal bilaterally. KIDNEYS: The kidneys are normal in shape, size, contour, and axis. There is no hydronephrosis or nephrolithiasis. BLADDER: The bladder is smooth in contour. PELVIC ORGANS: The uterus and adnexa are grossly normal for technique. AORTA: There is calcific atherosclerotic disease of the abdominal aorta and its branches, without aneurysmal dilatation IVC: Unremarkable LYMPH NODES: There is no lymphadenopathy by size criteria. ABDOMINAL WALL: There is no evidence for abdominal wall hernia. BONES AND SOFT TISSUES: Degenerative changes are noted of the spine OTHER: None IMPRESSION: 1. CHOLELITHIASIS. 2. ATHEROSCLEROSIS. 3. SCATTERED DIVERTICULA OF THE DISTAL COLON
[2016-10-03] MEDS: Ondansetron INJ* 2 MG/ML VIAL IV PRN (18:56)
[2016-10-03 19:09] LABS: Hematocrit 26 % (35-47); Hemoglobin 7.9 g/dl (12.0-16.0)
--- NOTE | 2016-10-03 20:17 | HP ---
CC: Dr. Caba * ADMISSION HISTORY AND PHYSICAL: DATE OF ADMISSION: 10/03/16 PRIMARY CARE PROVIDER: Dr. Caba. ADMITTING PROVIDER: DMITRIY Rosales SUPERVISING PHYSICIAN: Dr. Vikki Flynn.* (DICTATED BY DMITRIY ROSALES) CHIEF COMPLAINT: Abdominal pain. 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 The patient's pain started this afternoon and she decided to lie down on the couch hoping that it would resolve with some rest , but the pain became more severe and she subsequently called an ambulance. Upon arrival in the emergency department, she was having rather significant pain and received a couple of doses of Dilaudid. She reports associated nausea but without vomiting. She states that since discharge again 5 days ago, she has been having regular daily bowel movements without hematochezia or melena. Her prior complaint at the time of admission for GI bleed was mostly fatigue and she states that those complaints have resolved and she has actually been feeling quite well without abdominal pain, fatigue, nausea, or vomiting in the last several days. Of note, the patient has not had a prior colonoscopy. Her upper endoscopy from a recent admission showed gastritis, duodenitis, but no peptic ulcer disease. The patient denies any other acute complaints including chest pain, shortness of breath, or palpitations. No new skin rashes, fevers, night sweats, or chills. Of note, the patient has not resumed her aspirin or Coumadin since discharge and has not taken any NSAIDs. PAST MEDICAL HISTORY: 1. Atrial fibrillation, previously anticoagulated with Coumadin which has been interrupted after a recent GI bleed. 2. Polymyalgia rheumatica, on chronic low dose steroids. 3. Remote history of CVA without significant residual deficit. 4. Stage 3 chronic kidney disease. 5. Hypertension. PAST SURGICAL HISTORY: None. HOME MEDICATIONS: 1. Atenolol 150 mg p.o. daily. 2. Vitamin D 1000 units p.o. daily. 3. Loratadine 10 mg p.o. daily. 4. Multivitamin 1 tablet p.o. twice daily. 5. Nifedipine 60 mg p.o. daily. 6. Omeprazole 40 mg p.o. daily. 7. Spironolactone/hydrochlorothiazide 2 tablets p.o. daily. 8. Prednisone 1 mg p.o. daily. SOCIAL HISTORY: The patient lives alone. No significant smoking. History of regular alcohol consumption. She has a son who lives in [place]. REVIEW OF SYSTEMS: As noted above in HPI. All other systems reviewed and otherwise negative. PHYSICAL EXAMINATION GENERAL: This is a very pleasant 86-year-old female in no acute distress, who appears to be quite fatigued after receiving Dilaudid in the emergency department but is able to give a history and maintain appropriate level of consciousness throughout conversation. VITAL SIGNS: Temperature 97.7 degrees Fahrenheit, pulse 77 beats per minute, respiratory rate 20, oxygen saturation 100% on room air, and blood pressure 117/ 55 mmHg. HEENT: Head is normocephalic, atraumatic. Mucous membranes are mildly dry. RESPIRATORY: The patient has a few crackles noted mostly at right lung base, but otherwise clear to auscultation without wheezes or rhonchi. CARDIOVASCULAR: The patient has a slightly irregular rhythm with murmur appreciated. Best heard at the left sternal border. EXTREMITIES: The patient has what appears to be chronic nonpitting edema with some venous stasis changes over her lower extremities bilaterally. PSYCH: The patient is alert and appropriately oriented. LABORATORY DATA: CBC shows white blood cell count of 10,700, hemoglobin of 7.7 g/dL, and platelet count of 267,000. INR is normal at 0.94. Comprehensive metabolic panel is near her baseline. She has sodium of 136 mmol/L, potassium 3.6, BUN of 52, creatinine 1.95, random glucose of 183. Transaminases and total bilirubin are within normal limits. Initial troponin was negative. CRP mildly elevated at 14.2. Lipase mildly elevated at 105. IMAGING: CT of the abdomen and pelvis is largely unremarkable. She has noted cholelithiasis, no evidence of obstruction and scattered diverticula, but without evidence of diverticulitis. EKG shows atrial fibrillation with some questionable new lateral ST depression. ASSESSMENT AND PLAN: This is a very pleasant 86-year-old female with atrial fibrillation, PMR, remote CVA, stage 3 chronic kidney disease, and hypertension , who presented with complaints of abdominal pain after a recent hospitalization for gastrointestinal bleed. The patient is being admitted to observation status for further evaluation. 1. Abdominal pain - etiology is not entirely clear at this point. She has no acute pathology noted on CT and nothing significant on lab. Her hemoglobin is almost a gram lower than it was on discharge about a week ago, but she has not noted any melena or hematochezia and has otherwise been feeling well apart from today and no peptic ulcer disease was appreciated on her upper endoscopy from a week ago. Plan at this time would be to trend her hemoglobin overnight. Her EKG is also noted to be slightly abnormal. Whether her abdominal pain is cardiac in origin is certainly a possibility and we will trend her troponins and maintain her on continuous telemetry and repeat an EKG in the morning. 2. Hyperglycemia - I plan to check a hemoglobin A1c if her random glucose is slightly elevated. 3. Atrial fibrillation - this is chronic and the patient is not currently anticoagulated with a recent GI bleed. 4. Polymyalgia rheumatica - she is maintained on low dose prednisone just 1 mg daily. She does not require stress dosing for this presentation or for her chronic dose of prednisone. 5. Stage 3 chronic kidney disease. This appears to be near baseline. BUN is slightly higher which may favor a GI bleed, but again will be closely monitored. 6. Hypertension - the patient is normotensive at this time. 7. Code status is full. 8. DVT prophylaxis - we will provide SCDs, hold off on any chemical prophylaxis at this time due to hemoglobin and possibility of recurrent GI bleed. 9. Healthcare proxy is her son Keyon in [place]. DISPOSITION: The patient is being admitted to observation status for complaints of abdominal pain. Anticipate possible discharge for tomorrow. DMITRIY ROSALES [id number]/[facility] #: [id number] [facility] MED[facility] CENTERDajuan
[2016-10-03] MEDS: Acetaminophen TAB* 325 MG PO PRN (22:55)
[2016-10-03] MEDS ORDERED: Morphine INJ* 2 MG/ML 1 ML SYRINGE IV PRN (23:51)
[2016-10-04 01:01] LABS: Hematocrit 25 % (35-47); Hemoglobin 7.7 g/dl (12.0-16.0)
[2016-10-04] MEDS: Ondansetron INJ* 2 MG/ML VIAL IV PRN (03:25)
[2016-10-04] MEDS: HYDROmorphone* 1 MG/ML 1 ML SYR IV SLOW PU PRN ×2 (05:06→19:20)
[2016-10-04] MEDS: Omeprazole CAP* 20 MG PO SCH (05:07)
[2016-10-04] MEDS: PROCHLORPERAZINE INJ 5 MG/ML 2 ML VIAL IV PRN ×2 (05:08→19:22)
[2016-10-04 07:01] LABS: Hematocrit 25 % (35-47); Hemoglobin 7.7 g/dl (12.0-16.0); Mean Corpuscular HGB Conc 31 g/dl (31-36); Mean Corpuscular Hemoglobin 28 pg (27-31); Mean Corpuscular Volume 90 fL (80-97); Mean Platelet Volume 8 um3 (7.4-10.4); Red Blood Count 2.75 10^6/ul (4.0-5.4); Red Cell Distribution Width 16 % (10.5-15); White Blood Count 12.7 10^3/ul (3.5-10.8)
[2016-10-04 07:45] LABS: Albumin 3.3 g/dL (3.2-5.2); BUN/Creatinine Ratio 27.6 (8-20); Calcium 8.1 mg/dL (8.6-10.3); EGFR African American 34.2 (>60); EGFR Non-African American 26.6 (>60); Globulin 2.8 g/dL (2-4); Total Bilirubin 0.9 mg/dL (0.2-1.0); Total Protein 6.1 g/dL (6.4-8.9)
[2016-10-04] MEDS: predniSONE TAB* 1 MG PO SCH (08:34)
[2016-10-04] MEDS: Atenolol TAB* 50 MG PO SCH (08:34)
--- NOTE | 2016-10-04 09:45 | PN ---
Subjective Date of Service: 10/04/16 Interval History: Pt is feeling better this AM. She states her abdominal pain is essentially gone at this time. She describes the pain as being in the center of the abdomen and constant. She does not describe it as crampy or sharp. There has been no association with eating or BMs which she states have been normal. Objective Active Medications: Acetaminophen (Tylenol Tab*) 650 mg PO Q4H PRN PRN Reason: FEVER/PAIN Last Admin: 10/03/16 22:55 Dose: 650 mg Atenolol (Tenormin Tab*) 150 mg PO DAILY [facility] Last Admin: 10/04/16 08:34 Dose: 150 mg Hydromorphone HCl (Dilaudid Iv*) 0.5 mg IV SLOW PU Q4H PRN PRN Reason: PAIN Last Admin: 10/04/16 05:06 Dose: 0.5 mg Omeprazole (Prilosec Cap*) 40 mg PO 0600 [facility] Last Admin: 10/04/16 05:07 Dose: 40 mg Ondansetron HCl (Zofran Inj*) 4 mg IV Q4H PRN PRN Reason: NAUSEA/VOMITING Last Admin: 10/04/16 03:25 Dose: 4 mg Prednisone (Deltasone Tab*) 1 mg PO DAILY [facility] Last Admin: 10/04/16 08:34 Dose: 1 mg Prochlorperazine Edisylate (Compazine Inj*) 5 mg IV Q6H PRN PRN Reason: NAUSEA/VOMITING Last Admin: 10/04/16 05:08 Dose: 5 mg Vital Signs 10/03/16 10/03/16 10/03/16 16:30 17:00 17:15 Temperature Pulse Rate 78 69 Respiratory 20 17 13 Rate Blood Pressure 134/59 130/57 (mmHg) O2 Sat by Pulse 98 100 Oximetry 10/03/16 10/03/16 10/04/16 18:20 20:00 00:00 Temperature 97.3 F 98.6 F Pulse Rate 91 83 Respiratory 15 16 16 Rate Blood Pressure 120/52 131/57 (mmHg) O2 Sat by Pulse 100 100 Oximetry 10/04/16 10/04/16 10/04/16 00:01 01:01 04:18 Temperature 97.5 F Pulse Rate 104 Respiratory 13 13 20 Rate Blood Pressure 120/81 (mmHg) O2 Sat by Pulse 100 Oximetry 10/04/16 10/04/16 10/04/16 05:06 05:59 07:23 Temperature 98.7 F Pulse Rate 88 Respiratory 13 13 16 Rate Blood Pressure 144/57 (mmHg) O2 Sat by Pulse 100 Oximetry 10/04/16 07:40 Temperature Pulse Rate Respiratory 15 Rate Blood Pressure (mmHg) O2 Sat by Pulse Oximetry Oxygen Devices in Use Now: Nasal Cannula - 100%-2L Appearance: Elderly female lying in bed, NAD Eyes: No Scleral Icterus Ears/Nose/Mouth/Throat: Mucous Membranes Moist Respiratory: Symmetrical Chest Expansion and Respiratory Effort, Clear to Auscultation - few fine bibasilar crackles Cardiovascular: NL Sounds; No Murmurs; No JVD, No Edema, - - irregularly irregular, controlled rate Abdominal: - - BS+ soft, ND, no significant tenderness to palpation Extremities: No Clubbing, Cyanosis Skin: No Rash or Ulcers, No Nodules or Sclerosis Neurological: Alert and Oriented x 3 Result Diagrams: 10/04/16 05:49 10/04/16 05:49 Assess/Plan/Problems-Billing Ms Chen is an 86 yo F who was recently admitted for an upper GI bleed where she was found to have gastritis on EGD, afib (now off coumadin), HTN, PMR and stage III CKD who presented to the ER with c/o abdominal pain. - Patient Problems (1) Abdominal pain Current Visit: Yes Status: Acute Code(s): R10.9 - UNSPECIFIED ABDOMINAL PAIN SNOMED Code(s): 15675654 Comment: The etiology of this is not clear. Her lipase was mildly elevated at 105. ? pancreatitis as the cause of her pain. While she was found to have cholelithiasis on CT scan she does not have symptoms c/w biliary colic and there is no evidence of cholecystitis. She states her pain is much improved today than yesterday. She took in some of the clear liquids this AM which did not worsen her pain. She states she had a BM this AM that was normal consistency /color. Will advance her diet to regular for lunch and monitor for return of the abdominal pain. Will add on lipase to this AMs labs. (2) Afib Current Visit: Yes Status: Chronic Code(s): I48.91 - UNSPECIFIED ATRIAL FIBRILLATION SNOMED Code(s): 83058122 Comment: HR is controlled. Continue current dose of atenolol. Continue to hold coumadin for now (in for GI bleed ~6 days ago). (3) HTN (hypertension) Current Visit: Yes Status: Chronic Code(s): I10 - ESSENTIAL (PRIMARY) HYPERTENSION SNOMED Code(s): 75696111 Comment: BP is under fair control. Continue current dose of atenolol and add back nifedipine. (4) CKD (chronic kidney disease) Current Visit: Yes Status: Chronic Code(s): N18.9 - CHRONIC KIDNEY DISEASE, UNSPECIFIED SNOMED Code(s): 588107687 Comment: Creatinine is at baseline. Continue to monitor. (5) PMR (polymyalgia rheumatica) Current Visit: Yes Status: Chronic Code(s): M35.3 - POLYMYALGIA RHEUMATICA SNOMED Code(s): 86974274 Comment: Continue current dose of prednisone 1mg daily. (6) DVT prophylaxis Current Visit: Yes Status: Acute Code(s): ITQ7477 - SNOMED Code(s): 021987380 Comment: SCDs (7) Full code status Current Visit: Yes Status: Acute Code(s): Z78.9 - OTHER SPECIFIED HEALTH STATUS SNOMED Code(s): 750727025
[2016-10-04] MEDS: NIFEdipine ER TAB* 60 MG PO SCH (11:40)
[2016-10-05] MEDS: HYDROmorphone* 1 MG/ML 1 ML SYR IV SLOW PU PRN (00:53)
[2016-10-05] MEDS: Omeprazole CAP* 20 MG PO SCH (05:51)
[2016-10-05] MEDS: NIFEdipine ER TAB* 60 MG PO SCH (08:53)
[2016-10-05] MEDS: Atenolol TAB* 50 MG PO SCH (08:53)
[2016-10-05] MEDS: predniSONE TAB* 1 MG PO SCH (08:53)
--- NOTE | 2016-10-05 13:35 | PN ---
Subjective Date of Service: 10/05/16 Interval History: Pt states she still feels terrible. She has no appetite. She continues to c/o pain in her abdomen. She ate some of her breakfast this AM and states that her pain did not worsen after eating. When asked how long the pain has been going on for she states several weeks (possibly 5wks). Objective Active Medications: Acetaminophen (Tylenol Tab*) 650 mg PO Q4H PRN PRN Reason: FEVER/PAIN Last Admin: 10/03/16 22:55 Dose: 650 mg Atenolol (Tenormin Tab*) 150 mg PO DAILY [facility] Last Admin: 10/05/16 08:53 Dose: 150 mg Nifedipine (Procardia Xl Tab*) 60 mg PO DAILY [facility] Last Admin: 10/05/16 08:53 Dose: 60 mg Omeprazole (Prilosec Cap*) 40 mg PO 0600 [facility] Last Admin: 10/05/16 05:51 Dose: 40 mg Ondansetron HCl (Zofran Inj*) 4 mg IV Q4H PRN PRN Reason: NAUSEA/VOMITING Last Admin: 10/04/16 03:25 Dose: 4 mg Prednisone (Deltasone Tab*) 1 mg PO DAILY [facility] Last Admin: 10/05/16 08:53 Dose: 1 mg Prochlorperazine Edisylate (Compazine Inj*) 5 mg IV Q6H PRN PRN Reason: NAUSEA/VOMITING Last Admin: 10/04/16 19:22 Dose: 5 mg Sucralfate (Carafate*) 1 gm PO 0600,1100,1600,2100 [facility] Vital Signs 10/04/16 10/04/16 10/04/16 15:16 18:59 19:20 Temperature 98.7 F 98.9 F Pulse Rate 84 88 Respiratory 16 18 18 Rate Blood Pressure 129/53 119/50 (mmHg) O2 Sat by Pulse 99 100 Oximetry 10/04/16 10/04/16 10/04/16 19:35 20:00 20:20 Temperature 99.4 F Pulse Rate 84 Respiratory 17 18 16 Rate Blood Pressure 119/53 (mmHg) O2 Sat by Pulse Oximetry 10/04/16 10/05/16 10/05/16 23:36 00:53 01:53 Temperature 97.7 F Pulse Rate 89 Respiratory 19 26 18 Rate Blood Pressure 121/51 (mmHg) O2 Sat by Pulse 100 Oximetry 10/05/16 10/05/16 10/05/16 04:21 07:13 07:59 Temperature 97.8 F 99.1 F Pulse Rate 83 102 Respiratory 16 16 16 Rate Blood Pressure 133/58 129/54 (mmHg) O2 Sat by Pulse 99 99 Oximetry 10/05/16 11:48 Temperature 97.4 F Pulse Rate 92 Respiratory 16 Rate Blood Pressure 111/50 (mmHg) O2 Sat by Pulse 99 Oximetry Oxygen Devices in Use Now: None Appearance: Elderly female sitting in a chair, NAD Eyes: No Scleral Icterus Ears/Nose/Mouth/Throat: Mucous Membranes Moist Respiratory: Symmetrical Chest Expansion and Respiratory Effort, Clear to Auscultation Cardiovascular: NL Sounds; No Murmurs; No JVD, No Edema, - - irregularly irregular, controlled rate Abdominal: - - BS+ soft, ND, mildly tender to palpation in the L LQ Extremities: No Clubbing, Cyanosis Skin: No Rash or Ulcers, No Nodules or Sclerosis Neurological: - - pleasantly confused Result Diagrams: 10/04/16 05:49 10/04/16 05:49 Assess/Plan/Problems-Billing Ms Chen is an 86 yo F who was recently admitted for an upper GI bleed where she was found to have gastritis on EGD, afib (now off coumadin), HTN, PMR and stage III CKD who presented to the ER with c/o abdominal pain. - Patient Problems (1) Abdominal pain Current Visit: Yes Status: Acute Code(s): R10.9 - UNSPECIFIED ABDOMINAL PAIN SNOMED Code(s): 48390184 Comment: The etiology of this is not clear. ? mild pancreatitis though her numbers have improved and she continues to have pain. She seems to complain of much more pain than she exhibits signs of. ? CTA abdomen to r/o mesenteric ischemia. Continue regular diet for now. She has been having regular BMs without blood. I doubt gall bladder disease as she does not have focal pain in the RUQ and her pain as far as I can tell has not followed eating. (2) Afib Current Visit: Yes Status: Chronic Code(s): I48.91 - UNSPECIFIED ATRIAL FIBRILLATION SNOMED Code(s): 08962704 Comment: HR is controlled. Continue current dose of atenolol. Continue to hold coumadin for now (in for GI bleed ~6 days ago). (3) HTN (hypertension) Current Visit: Yes Status: Chronic Code(s): I10 - ESSENTIAL (PRIMARY) HYPERTENSION SNOMED Code(s): 76980863 Comment: BP is under good control. Continue current dose of atenolol and nifedipine. (4) CKD (chronic kidney disease) Current Visit: Yes Status: Chronic Code(s): N18.9 - CHRONIC KIDNEY DISEASE, UNSPECIFIED SNOMED Code(s): 524887726 Comment: Creatinine is at baseline. Continue to monitor. (5) PMR (polymyalgia rheumatica) Current Visit: Yes Status: Chronic Code(s): M35.3 - POLYMYALGIA RHEUMATICA SNOMED Code(s): 19554609 Comment: Continue current dose of prednisone 1mg daily. (6) DVT prophylaxis Current Visit: Yes Status: Acute Code(s): WSG8672 - SNOMED Code(s): 199874504 Comment: SCDs (7) Full code status Current Visit: Yes Status: Acute Code(s): Z78.9 - OTHER SPECIFIED HEALTH STATUS SNOMED Code(s): 059657946
[2016-10-05] MEDS: Sucralfate TAB* 1 GM PO SCH ×2 (16:59→21:16)
[2016-10-05] MEDS ORDERED: Ondansetron ODT TAB* 4 MG SL PRN (18:51)
[2016-10-05] MEDS: Acetaminophen TAB* 325 MG PO PRN (21:15)
[2016-10-05] MEDS ORDERED: oxyCODONE TAB* 5 MG TAB PO PRN (22:15)
[2016-10-06 05:15] LABS: Hematocrit 24 % (35-47); Hemoglobin 7.5 g/dl (12.0-16.0); Mean Corpuscular HGB Conc 32 g/dl (31-36); Mean Corpuscular Hemoglobin 28 pg (27-31); Mean Corpuscular Volume 87 fL (80-97); Mean Platelet Volume 9 um3 (7.4-10.4); Red Blood Count 2.72 10^6/ul (4.0-5.4); Red Cell Distribution Width 15 % (10.5-15); White Blood Count 10.4 10^3/ul (3.5-10.8)
[2016-10-06 05:24] LABS: BUN/Creatinine Ratio 27.6 (8-20); Calcium 8.4 mg/dL (8.6-10.3); EGFR African American 21.7 (>60); EGFR Non-African American 16.9 (>60); Potassium 4.5 mmol/L (3.5-5.0)
[2016-10-06] MEDS: Omeprazole CAP* 20 MG PO SCH (05:30)
[2016-10-06] MEDS: PROCHLORPERAZINE INJ 5 MG/ML 2 ML VIAL IV PRN (05:30)
[2016-10-06] MEDS: Sucralfate TAB* 1 GM PO SCH ×4 (05:30→21:54)
[2016-10-06] MEDS: predniSONE TAB* 1 MG PO SCH (10:19)
[2016-10-06] MEDS: Atenolol TAB* 50 MG PO SCH (10:19)
[2016-10-06] MEDS: NIFEdipine ER TAB* 60 MG PO SCH (10:20)
[2016-10-06] MEDS: Acetaminophen TAB* 325 MG PO PRN ×2 (10:28→14:57)
--- NOTE | 2016-10-06 10:50 | RAD ---
INDICATION: Abdominal pain, evaluate for mesenteric artery stenosis. COMPARISON: Correlation is made with a prior CT of the abdomen and pelvis from October 03, 2016. TECHNIQUE: Multiple real-time, Doppler tracings and color flow images of the celiac and mesenteric arteries were obtained. FINDINGS: The peak systolic velocity within the celiac artery was 143 cm/s. The peak systolic velocity in the adjacent aorta was 93 cm/s. The celiac to aortic ratio was 1.5. The peak systolic velocities in the splenic and hepatic arteries were 103 cm/s and 200 cm/s respectively. The peak systolic velocity within the superior mesenteric artery artery was 198 cm/s and was at the origin of the artery. The superior mesenteric artery to aortic ratio was 2.1. The inferior mesenteric artery was not visualized. IMPRESSION: NO EVIDENCE FOR HEMODYNAMICALLY SIGNIFICANT STENOSIS, IF THE PATIENT'S SYMPTOMS PERSIST CONSIDER A CT ANGIOGRAM OF THE ABDOMINAL AORTA FOR FURTHER EVALUATION.
[2016-10-06] MEDS ORDERED: NS 0.9% 1000 ML* 1,000 ML IV SCH ×2 (14:15→19:15)
--- NOTE | 2016-10-06 14:43 | PN ---
Subjective Date of Service: 10/06/16 Interval History: Pt is feeling poorly. She states she is still having severe periumbilical pain. She states she has not had a BM today. Objective Active Medications: Acetaminophen (Tylenol Tab*) 650 mg PO Q4H PRN PRN Reason: FEVER/PAIN Last Admin: 10/06/16 10:28 Dose: 650 mg Atenolol (Tenormin Tab*) 150 mg PO DAILY [facility] Last Admin: 10/06/16 10:19 Dose: 150 mg Sodium Chloride (Ns 0.9% 1000 Ml*) 1,000 mls @ 100 mls/hr IV PER RATE [facility] Nifedipine (Procardia Xl Tab*) 60 mg PO DAILY [facility] Last Admin: 10/06/16 10:20 Dose: 60 mg Omeprazole (Prilosec Cap*) 40 mg PO 0600 [facility] Last Admin: 10/06/16 05:30 Dose: 40 mg Ondansetron HCl (Zofran Inj*) 4 mg IV Q4H PRN PRN Reason: NAUSEA/VOMITING Last Admin: 10/04/16 03:25 Dose: 4 mg Ondansetron HCl (Zofran Odt Tab*) 4 mg SL Q6H PRN PRN Reason: NAUSEA/VOMITING Oxycodone HCl (Roxycodone Tab*) 5 mg PO Q4H PRN PRN Reason: PAIN Prednisone (Deltasone Tab*) 1 mg PO DAILY [facility] Last Admin: 10/06/16 10:19 Dose: 1 mg Prochlorperazine Edisylate (Compazine Inj*) 5 mg IV Q6H PRN PRN Reason: NAUSEA/VOMITING Last Admin: 10/06/16 05:30 Dose: 5 mg Sucralfate (Carafate*) 1 gm PO 0600,1100,1600,2100 [facility] Last Admin: 10/06/16 12:04 Dose: 1 gm Vital Signs 10/05/16 10/05/16 10/05/16 14:43 15:27 19:49 Temperature 99.7 F Pulse Rate 90 97 85 Respiratory 16 24 25 Rate Blood Pressure 112/49 129/70 113/50 (mmHg) O2 Sat by Pulse 94 93 94 Oximetry 10/05/16 10/05/16 10/06/16 20:00 23:48 07:49 Temperature 97.3 F 97.4 F Pulse Rate 84 100 Respiratory 25 20 20 Rate Blood Pressure 109/45 109/55 (mmHg) O2 Sat by Pulse 93 100 Oximetry 10/06/16 08:00 Temperature Pulse Rate Respiratory 20 Rate Blood Pressure (mmHg) O2 Sat by Pulse Oximetry Oxygen Devices in Use Now: None Appearance: Elderly female sitting up in a chair, NAD Eyes: No Scleral Icterus Ears/Nose/Mouth/Throat: Mucous Membranes Moist Respiratory: Symmetrical Chest Expansion and Respiratory Effort, Clear to Auscultation Cardiovascular: NL Sounds; No Murmurs; No JVD, No Edema, - - irregularly irregular, controlled rate Abdominal: NL Sounds; No Tenderness; No Distention Extremities: No Clubbing, Cyanosis Skin: No Rash or Ulcers, No Nodules or Sclerosis Neurological: - - pleasantly confused Result Diagrams: 10/06/16 04:51 10/06/16 04:51 Assess/Plan/Problems-Billing Ms Chen is an 86 yo F who was recently admitted for an upper GI bleed where she was found to have gastritis on EGD, afib (now off coumadin), HTN, PMR and stage III CKD who presented to the ER with c/o abdominal pain. - Patient Problems (1) Abdominal pain Current Visit: Yes Status: Acute Code(s): R10.9 - UNSPECIFIED ABDOMINAL PAIN SNOMED Code(s): 64132788 Comment: Mesenteric artery doppler negative for significant stenosis. Will get HIDA scan given cholelithiasis though I have a very low suspicion that her pain is related to gallbladder disease. She has not been eating much due to pain and NPO status today. Will also request GI consult as I am at a loss for the cause of her pain. Overall however she appear comfortable everytime I am in the room thought complaining of severe pain. (2) Afib Current Visit: Yes Status: Chronic Code(s): I48.91 - UNSPECIFIED ATRIAL FIBRILLATION SNOMED Code(s): 66457398 Comment: HR is controlled. Continue current dose of atenolol. Continue to hold coumadin for now (in for GI bleed ~6 days ago). Can likely resume ASA and coumadin in the next couple days if her H/H is stable. (3) HTN (hypertension) Current Visit: Yes Status: Chronic Code(s): I10 - ESSENTIAL (PRIMARY) HYPERTENSION SNOMED Code(s): 24421717 Comment: BP is under good control. Continue current dose of atenolol and nifedipine. (4) CKD (chronic kidney disease) Current Visit: Yes Status: Chronic Code(s): N18.9 - CHRONIC KIDNEY DISEASE, UNSPECIFIED SNOMED Code(s): 962270775 Comment: Pt has developed acute on chronic kidney disease. Will start NS at 75ml/hr x1L and recheck her Cr in AM. (5) PMR (polymyalgia rheumatica) Current Visit: Yes Status: Chronic Code(s): M35.3 - POLYMYALGIA RHEUMATICA SNOMED Code(s): 72207835 Comment: Continue current dose of prednisone 1mg daily. (6) DVT prophylaxis Current Visit: Yes Status: Acute Code(s): RRS5754 - SNOMED Code(s): 032546404 Comment: SCDs (7) Full code status Current Visit: Yes Status: Acute Code(s): Z78.9 - OTHER SPECIFIED HEALTH STATUS SNOMED Code(s): 739351122
--- NOTE | 2016-10-06 15:44 | ED ---
Karla Magallanes Alfonso, scribed for Franki Squires MD on 10/03/16 at 1427 . Abdominal Pain/Female - HPI Summary HPI Summary: This patient is a 86 year old female presenting to [facility] for sharp diffuse abdominal pain which began this morning. She rates the constant pain 5/10 in severity. Symptoms aggravated and alleviated by nothing. She states she is nauseous. She reports normal urination and a recent normal BM. She denies vomiting and melena. The patient presented to [facility] for a GI bleed 7 days ago. PMHx of A-Fib. - History of Current Complaint Chief Complaint: EDAbdPain Stated Complaint: ABD PAIN Time Seen by Provider: 10/03/16 14:13 Hx Obtained From: Patient Onset/Duration: Sudden Onset, Lasting Hours - Earlier today, Still Present Timing: Constant Severity Initially: Moderate Severity Currently: Moderate Pain Intensity: 5 Pain Scale Used: 0-10 Numeric Location: Diffuse Character: Sharp Alleviating Factor(s): Nothing Associated Signs and Symptoms: Positive: Negative Allergies/Adverse Reactions: Allergies Allergy/AdvReac Type Severity Reaction Status Date / Time No Known Allergies Allergy Verified 10/03/16 16:48 Home Medications: Home Medications Atenolol TAB* [Tenormin TAB* 50 MG] 150 mg PO DAILY 10/03/16 [History Confirmed 10/03/16] Spironolactone/HCTZ 25-25 MG* [Aldactazide 25-25*] 2 tab PO QAM 10/03/16 [ History Confirmed 10/03/16] PMH/Surg Hx/FS Hx/Imm Hx Endocrine/Hematology History: Reports: Hx Anticoagulant Therapy - ASA Cardiovascular History: Reports: Hx Hypercholesterolemia, Hx Hypertension History: Reports: Other Problems/Disorders - CKD Musculoskeletal History: Reports: Other Musculoskeletal History - 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 Negative: Vomiting Positive: no symptoms reported - reports normal urination and a recent normal BM All Other Systems Reviewed And Are Negative: Yes Physical Exam Triage Information Reviewed: Yes Vital Signs On Initial Exam: Initial Vitals Temp Pulse Resp BP Pulse Ox 97.7 F 77 20 117/55 100 10/03/16 14:15 10/03/16 14:15 10/03/16 14:15 10/03/16 14:15 10/03/16 14:15 Vital Signs Reviewed: Yes Appearance: Positive: Well-Appearing, No Pain Distress Skin: Positive: Warm, Skin Color Reflects Adequate Perfusion, Dry Head/Face: Positive: Normal Head/Face Inspection Eyes: Positive: Other: - Pale conjunctiva ENT: Positive: Normal ENT inspection Neck: Positive: Supple, Nontender Respiratory/Lung Sounds: Positive: Clear to Auscultation, Breath Sounds Present Cardiovascular: Positive: RRR Abdomen Description: Positive: Nontender, Soft Bowel Sounds: Positive: Present Musculoskeletal: Positive: Edema Left - Pedal edema in bilateral LE, Edema Right - Pedal edema in bilateral LE Neurological: Positive: Normal, Sensory/Motor Intact, Alert, Oriented to Person Place, Time, CN Intact II-III Psychiatric: Positive: Affect/Mood Appropriate Diagnostics - Vital Signs Vital Signs Temp Pulse Resp BP Pulse Ox 10/04/16 11:23 98.1 F 87 18 130/59 100 10/04/16 07:40 15 10/04/16 07:23 98.7 F 88 16 144/57 100 10/04/16 05:59 13 10/04/16 05:06 13 10/04/16 04:18 97.5 F 104 20 120/81 100 10/04/16 01:01 13 10/04/16 00:01 13 10/04/16 00:00 98.6 F 83 16 131/57 100 10/03/16 20:00 16 10/03/16 18:20 97.3 F 91 15 120/52 100 10/03/16 17:15 13 10/03/16 17:00 69 17 130/57 100 10/03/16 16:30 78 20 134/59 98 10/03/16 16:00 71 21 131/58 100 10/03/16 15:30 15 116/99 10/03/16 15:26 20 10/03/16 15:00 78 11 123/44 100 06/16/17 14:39 16 10/03/16 14:30 81 10 123/40 100 10/03/16 14:18 70 117/55 100 10/03/16 14:16 81 100 10/03/16 14:15 97.7 F 77 20 117/55 100 - Laboratory Lab Results: Lab Results 10/03/16 10/03/16 10/03/16 Range/Units 15:00 15:00 15:00 WBC 10.7 (3.5-10.8) 10^3/ul RBC 2.76 L (4.0-5.4) 10^6/ul Hgb 7.7 L (12.0-16.0) g/dl Hct 24 L (35-47) % MCV 88 (80-97) fL MCH 28 (27-31) pg MCHC 32 (31-36) g/dl RDW 16 H (10.5-15) % Plt Count 267 (150-450) 10^3/ul MPV 8 (7.4-10.4) um3 Neut % (Auto) 88.8 H (38-83) % Lymph % (Auto) 5.7 L (25-47) % [place] % (Auto) 4.9 (1-9) % Eos % (Auto) 0.1 (0-6) % Baso % (Auto) 0.5 (0-2) % Absolute Neuts (auto) 9.5 H (1.5-7.7) 10^3/ul Absolute Lymphs (auto) 0.6 L (1.0-4.8) 10^3/ul Absolute Monos (auto) 0.5 (0-0.8) 10^3/ul Absolute Eos (auto) 0 (0-0.6) 10^3/ul Absolute Basos (auto) 0 (0-0.2) 10^3/ul Absolute Nucleated RBC 0 10^3/ul Nucleated RBC % 0 INR (Anticoag Therapy) (0.89-1.11) Sodium 136 (133-145) mmol/L Potassium 3.6 (3.5-5.0) mmol/L Chloride 109 (101-111) mmol/L Carbon Dioxide 17 L (22-32) mmol/L Anion Gap 10 (2-11) mmol/L BUN 52 H (6-24) mg/dL Creatinine 1.95 H (0.51-0.95) mg/dL Est GFR ( Amer) 31.4 (>60) Est GFR (Non-Af Amer) 24.4 (>60) BUN/Creatinine Ratio 26.7 H (8-20) Glucose 183 H (70-100) mg/dL Hemoglobin A1c (Less than 6.0) % Lactic Acid 1.2 (0.5-2.0) mmol/L Calcium 8.4 L (8.6-10.3) mg/dL Total Bilirubin 0.60 (0.2-1.0) mg/dL AST 20 (13-39) U/L ALT 14 (7-52) U/L Alkaline Phosphatase 52 (34-104) U/L Total Creatine Kinase 49 (10-223) U/L Troponin I 0.01 (<0.04) ng/mL C-Reactive Protein 14.27 H (< 5.00) mg/L Total Protein 6.5 (6.4-8.9) g/dL Albumin 3.4 (3.2-5.2) g/dL Globulin 3.1 (2-4) g/dL Albumin/Globulin Ratio 1.1 (1-3) Amylase 134 H (29-103) U/L Lipase 105 H (11.0-82.0) U/L 10/03/16 10/03/16 10/03/16 Range/Units 15:00 15:30 19:00 WBC (3.5-10.8) 10^3/ul RBC (4.0-5.4) 10^6/ul Hgb 7.9 L (12.0-16.0) g/dl Hct 26 L (35-47) % MCV (80-97) fL MCH (27-31) pg MCHC (31-36) g/dl RDW (10.5-15) % Plt Count (150-450) 10^3/ul MPV (7.4-10.4) um3 Neut % (Auto) (38-83) % Lymph % (Auto) (25-47) % [place] % (Auto) (1-9) % Eos % (Auto) (0-6) % Baso % (Auto) (0-2) % Absolute Neuts (auto) (1.5-7.7) 10^3/ul Absolute Lymphs (auto) (1.0-4.8) 10^3/ul Absolute Monos (auto) (0-0.8) 10^3/ul Absolute Eos (auto) (0-0.6) 10^3/ul Absolute Basos (auto) (0-0.2) 10^3/ul Absolute Nucleated RBC 10^3/ul Nucleated RBC % INR (Anticoag Therapy) 0.94 (0.89-1.11) Sodium (133-145) mmol/L Potassium (3.5-5.0) mmol/L Chloride (101-111) mmol/L Carbon Dioxide (22-32) mmol/L Anion Gap (2-11) mmol/L BUN (6-24) mg/dL Creatinine (0.51-0.95) mg/dL Est GFR ( Amer) (>60) Est GFR (Non-Af Amer) (>60) BUN/Creatinine Ratio (8-20) Glucose (70-100) mg/dL Hemoglobin A1c 5.1 (Less than 6.0) % Lactic Acid (0.5-2.0) mmol/L Calcium (8.6-10.3) mg/dL Total Bilirubin (0.2-1.0) mg/dL AST (13-39) U/L ALT (7-52) U/L Alkaline Phosphatase (34-104) U/L Total Creatine Kinase (10-223) U/L Troponin I (<0.04) ng/mL C-Reactive Protein (< 5.00) mg/L Total Protein (6.4-8.9) g/dL Albumin (3.2-5.2) g/dL Globulin (2-4) g/dL Albumin/Globulin Ratio (1-3) Amylase (29-103) U/L Lipase (11.0-82.0) U/L 10/03/16 10/04/16 10/04/16 Range/Units 21:15 00:48 00:48 WBC (3.5-10.8) 10^3/ul RBC (4.0-5.4) 10^6/ul Hgb 7.7 L (12.0-16.0) g/dl Hct 25 L (35-47) % MCV (80-97) fL MCH (27-31) pg MCHC (31-36) g/dl RDW (10.5-15) % Plt Count (150-450) 10^3/ul MPV (7.4-10.4) um3 Neut % (Auto) (38-83) % Lymph % (Auto) (25-47) % [place] % (Auto) (1-9) % Eos % (Auto) (0-6) % Baso % (Auto) (0-2) % Absolute Neuts (auto) (1.5-7.7) 10^3/ul Absolute Lymphs (auto) (1.0-4.8) 10^3/ul Absolute Monos (auto) (0-0.8) 10^3/ul Absolute Eos (auto) (0-0.6) 10^3/ul Absolute Basos (auto) (0-0.2) 10^3/ul Absolute Nucleated RBC 10^3/ul Nucleated RBC % INR (Anticoag Therapy) (0.89-1.11) Sodium (133-145) mmol/L Potassium (3.5-5.0) mmol/L Chloride (101-111) mmol/L Carbon Dioxide (22-32) mmol/L Anion Gap (2-11) mmol/L BUN (6-24) mg/dL Creatinine (0.51-0.95) mg/dL Est GFR ( Amer) (>60) Est GFR (Non-Af Amer) (>60) BUN/Creatinine Ratio (8-20) Glucose (70-100) mg/dL Hemoglobin A1c (Less than 6.0) % Lactic Acid 1.6 (0.5-2.0) mmol/L Calcium (8.6-10.3) mg/dL Total Bilirubin (0.2-1.0) mg/dL AST (13-39) U/L ALT (7-52) U/L Alkaline Phosphatase (34-104) U/L Total Creatine Kinase (10-223) U/L Troponin I 0.04 H* (<0.04) ng/mL C-Reactive Protein (< 5.00) mg/L Total Protein (6.4-8.9) g/dL Albumin (3.2-5.2) g/dL Globulin (2-4) g/dL Albumin/Globulin Ratio (1-3) Amylase (29-103) U/L Lipase (11.0-82.0) U/L 10/04/16 10/04/16 10/04/16 Range/Units 00:48 05:49 05:49 WBC 12.7 H (3.5-10.8) 10^3/ul RBC 2.75 L (4.0-5.4) 10^6/ul Hgb 7.7 L (12.0-16.0) g/dl Hct 25 L (35-47) % MCV 90 (80-97) fL MCH 28 (27-31) pg MCHC 31 (31-36) g/dl RDW 16 H (10.5-15) % Plt Count 225 (150-450) 10^3/ul MPV 8 (7.4-10.4) um3 Neut % (Auto) 90.5 H (38-83) % Lymph % (Auto) 2.1 L (25-47) % [place] % (Auto) 7.4 (1-9) % Eos % (Auto) 0 (0-6) % Baso % (Auto) 0 (0-2) % Absolute Neuts (auto) 11.5 H (1.5-7.7) 10^3/ul Absolute Lymphs (auto) 0.3 L (1.0-4.8) 10^3/ul Absolute Monos (auto) 0.9 H (0-0.8) 10^3/ul Absolute Eos (auto) 0 (0-0.6) 10^3/ul Absolute Basos (auto) 0 (0-0.2) 10^3/ul Absolute Nucleated RBC 0.01 10^3/ul Nucleated RBC % 0.1 INR (Anticoag Therapy) (0.89-1.11) Sodium 135 (133-145) mmol/L Potassium 4.0 (3.5-5.0) mmol/L Chloride 107 (101-111) mmol/L Carbon Dioxide 16 L (22-32) mmol/L Anion Gap 12 H (2-11) mmol/L BUN 50 H (6-24) mg/dL Creatinine 1.81 H (0.51-0.95) mg/dL Est GFR ( Amer) 34.2 (>60) Est GFR (Non-Af Amer) 26.6 (>60) BUN/Creatinine Ratio 27.6 H (8-20) Glucose 117 H (70-100) mg/dL Hemoglobin A1c (Less than 6.0) % Lactic Acid (0.5-2.0) mmol/L Calcium 8.1 L (8.6-10.3) mg/dL Total Bilirubin 0.90 (0.2-1.0) mg/dL AST 25 (13-39) U/L ALT 14 (7-52) U/L Alkaline Phosphatase 56 (34-104) U/L Total Creatine Kinase (10-223) U/L Troponin I 0.01 (<0.04) ng/mL C-Reactive Protein (< 5.00) mg/L Total Protein 6.1 L (6.4-8.9) g/dL Albumin 3.3 (3.2-5.2) g/dL Globulin 2.8 (2-4) g/dL Albumin/Globulin Ratio 1.2 (1-3) Amylase 143 H (29-103) U/L Lipase 78 (11.0-82.0) U/L Result Diagrams: 10/06/16 04:51 10/06/16 04:51 Lab Statement: Any lab studies that have been ordered have been reviewed, and results considered in the medical decision making process. - CT CT A/P without PO contrast CT Interpretation: Positive (See Comments) - 1. CHOLELITHIASIS. 2. ATHEROSCLEROSIS. 3. SCATTERED DIVERTICULA OF THE DISTAL COLON CT Interpretation Completed By: Radiologist - EKG 1449 Cardiac Rate: NL - BPM 83 EKG Rhythm: Atrial Fibrillation EKG Interpretation: Nonspecific lateral depressions 1536 Cardiac Rate: NL - BPM 86 EKG Rhythm: Atrial Fibrillation EKG Comparison: No Significant Change - Compared to 1449 earlier today Abdominal Pain Fem Course/Dx - Course Course Of Treatment: Ms. Chen has a history of chronic A-Fib and had a recent GI Bleed which necessitated the stopping of her anticoagulants. Today she presented with diffuse abdominal pain out of proportion to her tenderness and I am concerned about possible ischemic bowel. Her GFR will not allow a CT abd/ pelvis and I have asked the hospitalists to consult on her. - Diagnoses Provider Diagnoses: Abdominal pain - Provider Notifications Discussed Care Of Patient With: Vikki Gee Time Discussed With Above Provider: 16:00 Instructed by Provider To: Other - Dr. Flynn (hospitalist) agrees to admit the patient. - Critical Care Time Critical Care Time: 30-74 min Discharge - Discharge Plan Condition: Stable Disposition: ADMITTED TO [facility] documentation as recorded by the Karla lai Alfonso accurately reflects the service I personally performed and the decisions made by me, Franki Squires MD.
[2016-10-06] MEDS ORDERED: HYDROmorphone* 1 MG/ML 1 ML SYR IV SLOW PU ONE (16:35)
[2016-10-06] MEDS: NS 0.9% 500 ML BAG* 500 ML IV ONE ×2 (16:40→19:40)
--- NOTE | 2016-10-06 17:30 | RAD ---
INDICATION: ] Right upper quadrant pain COMPARISON: CT October 03, 2016 TECHNIQUE: Following the administration of 6.5 millicuries of technetium 99m mebrofenin, serial, static, anterior images of the abdomen were initially acquired but imaging could only be performed for a very brief interval due to the patient's condition. The examination was terminated. IMPRESSION: INCOMPLETE EXAMINATION.
[2016-10-06] MEDS ORDERED: NS 0.9% 500 ML BAG* 500 ML IV ONE (18:00)
--- NOTE | 2016-10-06 18:38 | RAD ---
INDICATION: Code perea COMPARISON: CT brain January 09, 2006 TECHNIQUE: Noncontrast axial source images were acquired from the skull base to the vertex. FINDINGS: Ventricles/sulci: There is mild age-related cortical atrophy with compensatory dilatation of the CSF spaces. Brain parenchyma: There is encephalomalacia in the left posterior parietal lobe. There was an evolving nonhemorrhagic infarct at this site at the time of the 2005 examination. There are several additional areas of decreased attenuation in the periventricular and subcortical white matter. The second most notable is in the left frontal lobe adjacent to the anterior horn. This is most consistent with an ischemic insult. There are no definitive acute intracranial findings. There is no intracranial mass effect. Intracranial hemorrhage:None. Extra-axial spaces: There are no abnormal extra axial fluid collections or evidence of extra-axial mass. Calvarium: There is no calvarial fracture or other calvarial abnormality. Scalp: There is no evidence of scalp or extracalvarial soft tissue abnormality. Paranasal sinuses/mastoid: The paranasal sinuses and mastoid air cells are clear. Other: None. 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 Underlying periventricular and subcortical ischemic changes are likely chronic. No acute intracranial hemorrhage. Findings called to referring clinician at 1834 hours
[2016-10-06] MEDS ORDERED: Metoprolol Tartrate IV* 1 MG/ML 5 ML VIAL IV PRN (19:07)
--- NOTE | 2016-10-06 19:07 | RAD ---
INDICATION: Respiratory distress COMPARISON: Chest x-ray September 26, 2016 TECHNIQUE: An AP portable view obtained at 1851 hours is submitted. FINDINGS: Bones/Soft Tissues: There are no acute bony findings. Cardiomediastinal: The central pulmonary vessels and interstitium are prominent. There is interstitial edema. Lungs: There is mild bibasilar airspace disease. Pleura: There are small bilateral pleural effusions. Other: None IMPRESSION: INTERVAL DEVELOPMENT OF PULMONARY VENOUS CONGESTION WITH SMALL BILATERAL PLEURAL EFFUSIONS AND BIBASILAR AIRSPACE DISEASE
[2016-10-06 19:29] LABS: Hematocrit 27 % (35-47)
[2016-10-06] MEDS ORDERED: Norepinephrine 16MCG/ML IVPRE* 4,000 MCG/250 ML BAG IV ONE (19:29)
--- NOTE | 2016-10-06 19:31 | PN ---
Progress Note - Progress Note Note: I was contacted by nursing when the patient was brought back up to the floor from her attempt at getting the HIDA scan completed. I was informed the patient was hypotensive and mildly tachypnic. I evaluated the patient and ordered a 500ml bolus. Shortly after I was again contacted that she was dysarthric and confused. At that time I went back to evaluate and found the patient appearing dazed but she would answer questions with very slurred speech. With her h/o afib and being off coumadin I was concerned for CVA. Juany jameson called. Additionally I was concerned about her tachypnea thinking the differential included pulmonary edema vs PE (L LE enlarged>R), and I was concerned about her H/H that she may be bleeding again. Numerous attempts were made at obtaining blood work, all of which were unsuccessful. She was taken to CT scan then the ICU. As the ICU nurse was unable to obtain blood work and the patient was still hypotensive, I asked Dr. Aguiar from the ER to place an EJ which he did. Blood work was obtained. I contacted Dr. Suarez (painting machine operator) to discuss her case. He recommended EKG, in addition to everything else that was already ordered and in process, which was performed. When I called him to discuss the findings of the EKG her lactic acid returned elevated at 9.2, her K 6.2 and creatinine up to 3.22 from 2.68 this AM. The patient was then found to be even more hypotensive and started on levophed via the EJ as well as NS 1L bolus. Dr. Suarez returned to the hospital to help with further management. I spoke several times with the patient's friend/HCP Savi throughout the afternoon/evening and I updated the patient's son by phone. He is going to fly in tomorrow AM (could not make a flight tonight). After reviewing the labs and her acute clinical downturn I suspect she may have infarcted her gut or perforated. Once stabilized (IJ placed and possibly intubated) will get CT abdomen to eval for free air/gut ischemia.
[2016-10-06 19:32] LABS: Comments Flag Yes
[2016-10-06 19:40] LABS: BUN/Creatinine Ratio 25.5 (8-20); Calcium 7.9 mg/dL (8.6-10.3); EGFR African American 17.6 (>60); EGFR Non-African American 13.7 (>60)
[2016-10-06 19:42] LABS: Potassium 6.2 mmol/L (3.5-5.0)
[2016-10-06 19:46] LABS: Troponin I 0.07 ng/mL (<0.04)
[2016-10-06] MEDS ORDERED: Vancomycin per Pharmacy* NOTE FOLLOW UP PRN (19:48)
[2016-10-06] MEDS ORDERED: Zosyn per Pharmacy* NOTE FOLLOW UP SCH (20:00)
[2016-10-06] MEDS ORDERED: Vancomycin(*) 1,250 MG in NS 0.9% 250 ML* 250 ML IVPB ONE (20:30)
[2016-10-06] MEDS ORDERED: Sodium Bicarbonate 8.4%* 50 ML SYRINGE ONE ×2 (20:50→23:01)
--- NOTE | 2016-10-06 21:08 | CONSULT ---
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 EGD was done showing gastritis. She was eventually discharged with a stable hg and off warfarin. She presented on 10/[address] abd/pelvis without contrast demonstrated only cholelithiasis , scattered diverticuli. A mesenteric arterial Doppler was done 10/06 today and was negative for hemodynamically significant stenosis. A HIDA scan was ordered but was not able to be completed due patient condition. While on the medical floor patient developed respiratory distress. CXR was done showing mild pulm congestion and small Right pleural effusion. She was started on supplemental oxygen but remained tachypneic. She still has complaints of abd pain. Then BP started on drop, from low 120-130s in daytime to even 80s and 60s once she was moved to the ICU. She was started on pressors. I was called by Dr Bennett and case discussed. Lactic acid came back elevated >9 with metabolic acidosis, mild amylase elevation. At bedside she is in mod resp distress, on bipap but able to state she has pain. She is tender to touch on palpation more in lower abdominal quadrants. Currently 100% sat on fio2 100%, NIV 12/5, TV >600, rr 30s. She is awake. An emergent central line was placed by me. Levophed switched over. 2 Amps of NaBicarb push given for acidosis. Stat CT abd/pelvis done to eval for acute abd pathology. ROS: Unable to obtain full ROS and history due to resp distress PMHx: Chronic Afib, Polymyalgia rheumatic, h/o CVA (left posterior parietal), CKD3, HTN. PSHx: none Family History: none Social History: lives alone. No sig smoking history. History of reg alcohol consumption in the past. Son lives in [place]. Allergies: Allergies Allergy/AdvReac Type Severity Reaction Status Date / Time No Known Allergies Allergy Verified 10/03/16 16:48 Home Medications: Cholecalciferol TAB* [Vitamin D TAB*] 1,000 unit PO DAILY 09/26/16 [History Confirmed 10/03/16] LoraTADine TAB(NF) [Claritin 10 MG TAB(NF)] 10 mg PO DAILY PRN 09/26/16 [ History Confirmed 10/03/16] Nifedipine [Adalat cc] 60 mg PO DAILY 09/26/16 [History Confirmed 10/03/16] predniSONE TAB* [Deltasone TAB*] 1 mg PO DAILY 09/26/16 [History Confirmed 10/03] Multivitamins/Minerals TAB* [Theragran/minerals TAB*] 1 tab PO BID #0 09/28/16 [Rx Confirmed 10/03/16] Omeprazole CAP* [Prilosec CAP* 20 MG] 40 mg PO 0600 #60 cap 09/28/16 [Rx Confirmed 10/03/16] Atenolol TAB* [Tenormin TAB* 50 MG] 150 mg PO DAILY 10/03/16 [History Confirmed 10/03/16] Spironolactone/HCTZ 25-25 MG* [Aldactazide 25-25*] 2 tab PO QAM 10/03/16 [ History Confirmed 10/03/16] Tele: Afib, rate controlled Vitals: BP 115/68 , HR 70s, sat 100% on NIV 100% fio2; rr 30 O2/Vent: NIV 12/5, 100%, sat 100%, tv 600+, rr 30 Infusions: levophed 12mcg/min Current Medications: Acetaminophen (Tylenol Tab*) 650 mg PO Q4H PRN PRN Reason: FEVER/PAIN Last Admin: 10/06/16 14:57 Dose: 650 mg Hydrocortisone Sodium Succinate (Solu-Cortef*) 50 mg IV Q8H [facility] Sodium Chloride (Ns 0.9% 1000 Ml*) 1,000 mls @ 50 mls/hr IV .PER RATE RODRIGO Vancomycin HCl 1,250 mg/ (Sodium Chloride) 250 mls @ 166.667 mls/hr IVPB ONCE ONE PRN Reason: Protocol Stop: 10/06/16 21:59 Metoprolol Tartrate (Lopressor Iv*) 5 mg IV Q6H PRN PRN Reason: HR >110 Omeprazole (Prilosec Cap*) 40 mg PO 0600 RODRIGO Last Admin: 10/06/16 05:30 Dose: 40 mg Ondansetron HCl (Zofran Inj*) 4 mg IV Q4H PRN PRN Reason: NAUSEA/VOMITING Last Admin: 10/04/16 03:25 Dose: 4 mg Ondansetron HCl (Zofran Odt Tab*) 4 mg SL Q6H PRN PRN Reason: NAUSEA/VOMITING Oxycodone HCl (Roxycodone Tab*) 5 mg PO Q4H PRN PRN Reason: PAIN Pharmacy Consult (Zosyn Per Pharmacy*) 1 note FOLLOW UP .ZOSYN PER PHARMACY [facility] Pharmacy Consult (Vancomycin Per Pharmacy*) 1 note FOLLOW UP . PRN PRN Reason: PER PROTOCOL Prochlorperazine Edisylate (Compazine Inj*) 5 mg IV Q6H PRN PRN Reason: NAUSEA/VOMITING Last Admin: 10/06/16 05:30 Dose: 5 mg Sucralfate (Carafate*) 1 gm PO 0600,1100,1600,2100 [facility] Last Admin: 10/06/16 16:44 Dose: 1 gm Physical Exam: General: awake, alert, mild/mod resp distress, no diaphoresis Head: normocephalic, atraumatic HEENT: +pallor, no icterus, dry mucous membranes Neck: soft, supple, no jvd, no stridor CVS: normal rate, regular rhythm, no murmur Resp: bilateral air entry, no rhales, no wheeze, no rhonchi, no acc muscle use Abdomen: soft, +tender on palpation, no guarding/rigidity, nondistended, BS+ Ext: pulses feeble but present, cool ext, no edema Skin: intact, no breakdown, no dryness Neuro: awake, alert, orientedx3, moving all extremities, no gross focal deficit Labs: Laboratory Results - last 24 hr 10/06/16 10/06/16 10/06/16 04:51 04:51 17:40 WBC 10.4 RBC 2.72 L Hgb 7.5 L Hct 24 L MCV 87 MCH 28 MCHC 32 RDW 15 Plt Count 278 MPV 9 ABG pH ABG pCO2 ABG pO2 ABG HCO3 ABG O2 Saturation ABG Base Excess VBG pH VBG pCO2 VBG pO2 VBG HCO3 VBG O2 Saturation VBG Base Excess Sodium 127 L D Potassium 4.5 Chloride 106 Carbon Dioxide 17 L Anion Gap 4 BUN 74 H Creatinine 2.68 H Est GFR ( Amer) 21.7 Est GFR (Non-Af Amer) 16.9 BUN/Creatinine Ratio 27.6 H Glucose 99 POC Glucose (mg/dL) 169 H Lactic Acid Calcium 8.4 L Troponin I Amylase 182 H Lipase 13 10/06/16 10/06/16 10/06/16 19:10 19:10 19:10 WBC RBC Hgb 8.0 L Hct 27 L MCV MCH MCHC RDW Plt Count MPV ABG pH ABG pCO2 ABG pO2 ABG HCO3 ABG O2 Saturation ABG Base Excess VBG pH VBG pCO2 VBG pO2 VBG HCO3 VBG O2 Saturation VBG Base Excess Sodium 128 L Potassium 6.2 H* D Chloride 102 Carbon Dioxide 9 L* Anion Gap 17 H BUN 82 H Creatinine 3.22 H Est GFR ( Amer) 17.6 Est GFR (Non-Af Amer) 13.7 BUN/Creatinine Ratio 25.5 H Glucose 109 H POC Glucose (mg/dL) Lactic Acid 9.2 H* Calcium 7.9 L Troponin I 0.07 H* Amylase Lipase 10/06/16 10/06/16 19:14 22:21 WBC RBC Hgb Hct MCV MCH MCHC RDW Plt Count MPV ABG pH 7.33 L ABG pCO2 17 L* ABG pO2 198 H ABG HCO3 13.0 L ABG O2 Saturation 97.2 ABG Base Excess -15.3 L VBG pH 7.07 L VBG pCO2 31 L VBG pO2 35 VBG HCO3 9.0 L VBG O2 Saturation 53.9 L VBG Base Excess -19.6 L Sodium Potassium Chloride Carbon Dioxide Anion Gap BUN Creatinine Est GFR ( Amer) Est GFR (Non-Af Amer) BUN/Creatinine Ratio Glucose POC Glucose (mg/dL) Lactic Acid Calcium Troponin I Amylase Lipase Imaging: CT head 10/06 reviewed HIDA 10/06 reviewed Mesenteric Duplex 10/[address] abd 10/03 - reviewed Ct abd/pelvis 10/06 pm - no pneumatosis, no perforation. 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 Comes in now for abdominal pain. Workup ongoing, developed shortness of breath and hypotension with lactic acidosis. -Acute Respiratory Distress 2/2 to metabolic acidosis -Septic Shock -Acute abdomen -Right Lower lobe pneumonia, HCAP suspected, unspec organism -ADALGISA on CKD -Lactic Acidosis -Hyperkalemia -Delirium, metabolic/toxic Plan: Neuro- neurochecks, asp prec. CT head neg for acute pathology. delirium prec. CVS- suspected septic/distributive shock from acute abdominal cause vs RLL pneumonia, though lactic acid out of proportion for a pneumonia. CT abd/pelvis reviewed, no acute pathology noted to be doing this, though it is noncontrast. Surgical consult called by Dr Bennett to see patient. Levophed and vasopresisn for hemodyn support. Central and arterial lines placed now. Bicarb pushes, Started bicarb infusion 150meq in d5w @ 125cc/hour. trend lactic acid. check cpk. Afib is rate controlled. hold BB and antihypertensives for shock. Off AC/ antiplatelets. Resp- NIV for resp support. VBG reviewed, metabolic acidosis+, repeat pending now to assess O2 sat/perfusion status. ABG repeated, met acidosis with resp alkalosis. NIV PS dec to 10 now, on less fio2. Monitor status for lethargy or hypoventilation, high risk of being intubated in this state. IV abx to cover RLL pneumonia. sputum culture if possible. ID- hypothermic now, wbc 10 yesterday but now with more abdominal findings+ as well as RLL consolidation. Agree with zosyn and vancomycin for now. blood cx x2. check urinalysis. sputum culture. GI- NPO. protonix IV. CT abd/pelvis without acute obstruction/perforation/ pneumatosis. Cont to trend lactic acid. Surgical consult will be called. Hemoglobin stable, no acute bleeding observed. Renal-ADALGISA on CKD; likely 2/2 to pre-renal azotemia + shock +septic ATN now. Cates to be inserted. Monitor i/o. Given insulin/d50 and calcium IV for hyperkal. repeat BMP. Bicarb 150meq in d5w infusion at 125cc/hr. Pressor support. Heme- hg stable now. cont to trend. plt stable. hold all AC and antiplatelets. Endo- monitor FS Musculsk- bedrest Wounds- none Nutrition- NPO DVT prophylaxis: none at this time GI prophylaxis: PPI Central Line: right IJ 10/06 Arterial Line: right femoral 10/06 Cates Cathetor: yes Disposition: ICU for shock, acute abdomen Code Status: full code Total Critical Care time is 90 minutes, excluding procedures/teaching Riki Suarez MD Sqe (Electronically Signed)
--- NOTE | 2016-10-06 21:25 | PN ---
Progress Note - Progress Note Note: Central Line Procedure Note Indication: Hypotension/shock, poor vascular access Consent was emergent. - Prior labs/history was reviewed prior to procedure - Full sterile precautions with chlorhexidine/full drapes/gowns/gloves utilized - Right IJ vein visualized with ultrasound - Vessel accessed under ultrasound guidance with return of nonpulsatile blood. A guidewire was passed into vessel and confirmed in vessel with ultrasound. 1 attempt was made to access vessel. Vessel was dilated and cathetor was passed over wire into vessel. All ports demonstrated good blood return and flushed. Catheter was sutured to site and dressing applied Adequate hemostasis was achieved, EBL 5cc No immediate complications noted, patient tolerated procedure well. CXR pending for confirmation Riki Suarez MD Studio Set Up Worker (electronically signed)
--- NOTE | 2016-10-06 21:36 | RAD ---
INDICATION: Evaluate for perforation or mesenteric ischemia COMPARISON: CT October 03, 2016 TECHNIQUE: Noncontrast axial source images were acquired from the level hemidiaphragms to the symphysis pubis. Lung bases: The heart is enlarged. There is coronary arterial disease. There is right basilar consolidative change and there is a small to moderate sized right-sided pleural effusion and a small left-sided pleural effusion. Liver: The liver is normal in size. Noncontrast imaging shows no evidence of a hepatic mass or ductal dilatation. Gallbladder: Cholelithiasis with dominant calcified gallstone. Spleen: The spleen is normal in size. The noncontrast CT appearance is normal. Pancreas: Noncontrast imaging shows no pancreatic mass or ductal dilitation. Adrenal glands: No masses are identified. Kidneys/Bladder: There is no evidence of nephrolithiasis or CT evidence of hydronephrosis. Noncontrast imaging shows a 1.7 cm midpole left renal hypodensity which is likely a cyst. The bladder is unremarkable.. Adenopathy: There is no evidence of intraperitoneal or retroperitoneal adenopathy. Evaluation is limited without oral contrast. Fluid collections: There is a small amount of free fluid in the dependent portion of the pelvis. Vessels: There are atherosclerotic changes of the aorta and iliac vessels. There is no focal aneurysm. The IVC appears normal Pelvic organs: The uterus and adnexa appear normal GI tract: Evaluation of bowel is limited without contrast. The stomach is fluid-filled and distended the proximal small bowel is fluid-filled and mildly distended. Jejunal loops measure up to 3.6 cm the distal small bowel is fluid-filled with no sharp transition zone. The small bowel is mildly out of proportion relative to the colon which is decompressed with a small amount residual contrast from earlier CT imaging. There are scattered diverticula of the sigmoid and descending colon. Soft tissues: No soft tissue abnormalities of the extraperitoneal abdomen or pelvis are identified. Osseous structures: There are no acute osseous findings. IMPRESSION: 1. Limited noncontrast imaging was performed. 2. The stomach the stomach and proximal small bowel are fluid-filled and distended. The remaining small bowel is fluid-filled. The findings could be related to an ileus or a mild partial small bowel obstruction. Suggest follow-up plain radiographs. There is no evidence of free air or pneumatosis. 3. Small amount of free fluid in the dependent portion of pelvis. 4. Right basilar consolidative change and bilateral pleural effusions. Cardiomegaly. 5. Advanced atherosclerotic changes
[2016-10-06] MEDS: Hydrocortisone INJ* 100 MG VIAL IV SCH (21:39)
[2016-10-06] MEDS ORDERED: Insulin REGULAR(*) 1 UNITS UNIT ONE (22:31)
--- NOTE | 2016-10-06 22:31 | PN ---
Progress Note - Progress Note Note: Arterial Line Procedure Note Indication: hypotension/shock Consent was emergent - Prior labs/history was reviewed prior to procedure - Full sterile precautions with chlorhexidine/full drapes/gowns/gloves utilized -attempted left radial artery first but even under ultrasound and 2 attempts, poor access due to very small caliber vessel. -Switched to right femoral artery; Right femoral artery visualized with US - Vessel accessed with return of pulsatile blood. 1 attempt was made to access vessel. A cathetor was threaded over wire into vessel. Good arterial waveform was observed on monitor. - Arterial Catheter was sutured to site - Adequate hemostasis was achieved, EBL 5 cc No immediate complications noted, patient tolerated procedure well. Dressing applied to site. Riki Suarez MD Machine I Coremaker (electronically signed)
[2016-10-06] MEDS ORDERED: CALCIUM GLUCONATE* 1 GM/10 ML VIAL (in Pyxis) ONE (22:32)
[2016-10-06] MEDS ORDERED: Dextrose 50% Syringe 50 ML* 25 GM/50 ML SYRINGE ONE (22:33)
[2016-10-06] MEDS ORDERED: VASOPRESSIN 20 UNITS/ML 1 ML VIAL ONE ×2 (22:37→22:38)
[2016-10-06] MEDS ORDERED: Dextrose 50% Syringe 50 ML* 25 GM/50 ML SYRINGE IV PUSH PRN (22:42)
[2016-10-06] MEDS ORDERED: CALCIUM GLUCONATE* 1 GM/10 ML VIAL (in Pyxis) IV PUSH ONE (22:43)
[2016-10-06] MEDS ORDERED: Insulin REGULAR(*) 1 UNITS UNIT IV PUSH ONE (22:43)
[2016-10-06] MEDS ORDERED: Vasopressin* 100 UNITS in D5W 250 ML BAG* 245 ML IVPB SCH (22:45)
[2016-10-06 22:51] LABS: PCO2 Arterial 17 mmHg (35-45)
[2016-10-06] MEDS ORDERED: Sodium Bicarbonate 8.4% IV* 50 ML VIAL IV ONE ×2 (22:57→22:58)
--- NOTE | 2016-10-06 22:57 | RAD ---
INDICATION: Central line placement COMPARISON: Chest x-ray October 06, 2016 TECHNIQUE: An AP portable view obtained at 2123 hours is submitted. FINDINGS: Bones/Soft Tissues: There are no acute bony findings. There is a right IJ catheter with its tip in the superior vena cava. There is no pneumothorax. Cardiomediastinal: The cardiac silhouette is mildly prominent. Lungs: There are mild bibasilar infiltrates or atelectasis. Pleura: Small bilateral pleural effusions right greater than left. Other: None IMPRESSION: RIGHT IJ CATHETER IN EXPECTED POSITION. NO PNEUMOTHORAX. MILD BIBASILAR ABNORMALITIES.
[2016-10-06] MEDS ORDERED: Sodium Bicarbonate 8.4% IV* 150 MEQ in D5W 1000 ML BAG* 1,000 ML IVPB SCH (23:00)
[2016-10-06 23:41] LABS: Venous Bicarbonate HCO3 16.5 mmol/L (24-28)
[2016-10-07] MEDS: Norepinephrine 16MCG/ML IVPRE* 4,000 MCG/250 ML BAG IV SCH ×3 (00:39→12:20)
[2016-10-07 00:49] LABS: BUN/Creatinine Ratio 26.1 (8-20); Calcium 7.4 mg/dL (8.6-10.3); EGFR African American 17.8 (>60); EGFR Non-African American 13.9 (>60); Potassium 4.7 mmol/L (3.5-5.0)
[2016-10-07 01:17] LABS: Urine Bacteria 3+ (Absent); Urine Bilirubin Negative (Negative); Urine Glucose Negative (Negative); Urine Nitrite Negative (Negative)
[2016-10-07] MEDS ORDERED: LORazepam INJ* 2 MG/ML 1 ML VIAL IV PUSH ONE (01:30)
[2016-10-07] MEDS ORDERED: LORazepam INJ* 2 MG/ML 1 ML VIAL ONE (01:38)
--- NOTE | 2016-10-07 02:41 | CONS ---
CONSULTATION REPORT: DATE OF CONSULT: 10/07/16 REFERRING PROVIDER: Lita Bennett DO, Hospitalist. REASON FOR CONSULTATION: History of abdominal pain, hypotension, and acute renal failure. HISTORY OF PRESENT ILLNESS: Ms. Kathi Chen is a very pleasant 86-year-old woman with history of atrial fibrillation, polymyalgia and a history of CVA in the past with chronic renal insufficiency and hypertension who recently was in [facility] [place] for a GI bleed almost 10 days ago while on Coumadin. An upper endoscopy showed gastritis and she remained stable and was discharged home off her warfarin. She presented on the September with generalized abdominal pain. At that time , her white blood cell count was normal. She had a hemoglobin of 7.7, BUN and creatinine of 52 and 1.95. Amylase and lipase were 134 and 105 respectively. On admission, she underwent a CAT scan of the abdomen and pelvis. This was done without IV contrast. Oral contrast was given. It showed a large gallstone and findings consistent with atherosclerosis of the mesenteric vessels and some scattered diverticula of the left colon. As part of her workup, she had an abdominal arterial study as well for her abdominal pain in light of her multiple medical comorbidities and age. This showed no evidence for hemodynamic significant stenosis in the celiac artery, the splenic or hepatic arteries. Also noted was no significant hemodynamic stenosis in the superior mesenteric artery. The inferior mesenteric artery was not visualized. As a part of her workup, she underwent hepatobiliary scan today due to the large gallstone. Apparently, at that time, she had developed some respiratory distress and it appeared her chest x-ray showed mild pulmonary congestion with right pleural effusion. She was started on oxygen. She still complained of some abdominal pain. She did develop some hypotension and was transferred to the intensive care unit. Central line and arterial line were placed by Dr. Suarez , the gyroscopic engineering technician medical office receptionist, and she was started on pressors. Her lactic acid returned as greater than 9 with an elevated potassium of over 6 and a BUN and creatinine of 82 and 3.22, which is up significantly from the morning value of 2.68. In addition, she also had a venous blood gas with a pH of 7.07, which is increased to 7.33. She underwent a CT scan of her head, which showed no acute change. She also underwent a repeat CT scan of the abdomen and pelvis. This was done without oral or IV contrast. I did review these studies. A radiologist here has read this as no acute findings, but generalized distention of the small bowel throughout. There was no evidence of free air or pneumatosis. Small amount of free fluid in the pelvis and a right basilar consolidative change consistent with possible pneumonia. While back in the intensive care unit, she has been resuscitated further with fluids and on her pressors. She remains awake and alert and at present is not complaining of abdominal discomfort. In light of the findings and in fact that she had had abdominal pain, surgical consultation was obtained. PAST MEDICAL HISTORY: 1. Atrial fibrillation. 2. Polymyalgia rheumatica. 3. History of CVA. 4. Chronic kidney disease. 5. Hypertension. PAST SURGICAL HISTORY: None. HOME MEDICATIONS: Include: 1. Loratadine. 2. Nifedipine. 3. Prednisone tablets. 4. Multivitamin. 5. Omeprazole. 6. Atenolol. 7. Spironolactone. ALLERGIES: She has no known drug allergies. SOCIAL HISTORY: She lives alone. She has no significant smoking history. She has had some alcohol consumption in the past. Her son lives in [place]. REVIEW OF SYSTEMS: Otherwise difficult to obtain from the patient. PHYSICAL EXAM: Temperature is 95.8, pulse 71, blood pressure 142/95. She is on a face mask, but is awake and alert and actually fairly pleasant. She is not complaining of any abdominal discomfort. She answers questions appropriately and appears to be oriented to person, place and time. Lungs with diminished breath sounds throughout. Abdomen is soft, but protuberant. She has bowel sounds that are present but slightly decreased. There are no prior surgical incisions or hernias. With deep palpation and pushing on the abdomen throughout, I appreciate no peritoneal irritation nor there is no wincing or grimacing and does not appear to be in any distress. DIAGNOSTIC STUDIES/LAB DATA: Most recent lactic acid of 9.2 with a potassium of 6.2, carbon dioxide of 9. IMPRESSION: Abdominal pain on admission for the last several days now with hemodynamic collapse requiring aggressive resuscitation with pressors, IV fluids , central line access and initiation of IV antibiotics. She was admitted with abdominal discomfort and 2 CAT scans have not shown significant findings and an ultrasound of her mesenteric vessels showed no significant findings and although the MARIBEL was not visualized. Certainly, this could be mesenteric ischemia, which was certainly worrisome. Although her exam today does not show acute peritonitis, she did have a significant hemodynamic collapse, but she does appear to be responding to resuscitation. At this point, however, I think with her age and associating comorbidities and her laboratory values and the fact that she is requiring Levophed to still maintain her blood pressure that I think that she is a very poor candidate for any operative intervention, i.e., at a minimum laparoscopy to directly visualize the bowel as we know that CT scans are not reliable to assess this. However, at this point, I think that she would not survive an operation with a general anesthetic and I discussed this with her and she would not want to proceed with any heroic or emergency laparoscopy/laparotomy in this situation, and I will certainly respect her wishes. I think that she would not tolerate a general anesthetic and could become ventilator dependent and not survive and she feels that this is not the way that she would not want to proceed in this direction. I did attempt to call her son, Keyon, at [phone], but this went to his voice mail. I did leave a message. Apparently, he may be coming to [place] tomorrow. For now, I have discussed her care with Dr. Suarez that he will continue with his present resuscitative efforts in addition to IV antibiotics and will follow her. At this point, we will plan no surgery as her wishes are not to proceed in this direction and I think that this is the appropriate decision to be made in this situation. [id number]/CPS #: [id number] MTDD
[2016-10-07 02:46] LABS: PCO2 Arterial 29 mmHg (35-45)
[2016-10-07] MEDS ORDERED: Morphine INJ* 2 MG/ML 1 ML SYRINGE ONE (02:54)
[2016-10-07] MEDS ORDERED: Sodium Bicarbonate 8.4%* 50 ML SYRINGE IV ONE (03:15)
[2016-10-07] MEDS ORDERED: Sodium Bicarbonate 8.4%* 50 ML SYRINGE ONE (03:21)
[2016-10-07] MEDS: ZOSYN 3.375 GM Q12H per EXTENDED INFUSION IVPB SCH ×4 (04:38→16:38)
[2016-10-07] MEDS: Hydrocortisone INJ* 100 MG VIAL IV SCH ×3 (04:40→16:38)
[2016-10-07 04:44] LABS: PCO2 Arterial 23 mmHg (35-45)
[2016-10-07 04:48] LABS: Troponin I 0.07 ng/mL (<0.04)
[2016-10-07] MEDS ORDERED: Succinylcholine* 20 MG/ML 10 ML VIAL ONE ×2 (05:10→05:26)
[2016-10-07 05:23] LABS: Hematocrit 22 % (35-47); Mean Corpuscular HGB Conc 30 g/dl (31-36); Mean Corpuscular Hemoglobin 27 pg (27-31); Mean Corpuscular Volume 89 fL (80-97); Mean Platelet Volume 9 um3 (7.4-10.4); Red Blood Count 2.48 10^6/ul (4.0-5.4); Red Cell Distribution Width 16 % (10.5-15); White Blood Count 11.3 10^3/ul (3.5-10.8)
[2016-10-07] MEDS ORDERED: Etomidate* 2 MG/ML 20 ML VIAL (40 MG) ONE (05:26)
[2016-10-07 05:30] LABS: Comments Flag Yes
[2016-10-07 05:31] LABS: Add Diff/Slide Review? Slide Review Added; Hemoglobin 6.6 g/dl (12.0-16.0)
[2016-10-07 05:37] LABS: BUN/Creatinine Ratio 25.5 (8-20); Calcium 7.1 mg/dL (8.6-10.3); EGFR African American 17.4 (>60); EGFR Non-African American 13.5 (>60); Potassium 5.3 mmol/L (3.5-5.0)
[2016-10-07] MEDS: Sucralfate TAB* 1 GM PO SCH ×3 (05:52→16:38)
--- NOTE | 2016-10-07 06:04 | PN ---
Progress Note - Progress Note Note: INTUBATION PROCEDURE NOTE INDICATION: acute respiratory failure PROCEDURE CAMP HOUSEKEEPER: Mango Rangel II, MD ATTENDING PHYSICIAN: Clover Joiner MD ED CONSENT: The procedure was performed emergently and the permission was implied because of the emergent nature. PROCUDURE SUMMARY: My hands were washed immediately prior to the procedure. [place] precautions were practiced. The patient was on a monitor tech including continuous pulse oximetry. Integrity of endotracheal tube balloon was demonstrated. Rapid sequence intubation was conducted. The patient received etomidate 20mg & 100mg succinyl choline for adequate paralysis & sedation. Cricoid pressure was maintained from time of induction agent was given to time of cuff balloon inflation. Using a Glidescope and size 8 endotracheal tube with stylet, the patient was intubated on the first attempt. The stylet was removed and cuff balloon was inflated. Appropriate endotracheal tube position was confirmed by direct visualization of vocal cord passage, fogging of the tube, CO2 colometric indicator and symmetric breath sounds. The tube was secured at 21cm at the teeth. After ET secured, an OG was inserted without difficulty returning ~800cc blood tinged gastric contents. Post intubation chest x-ray revealed a high riding ET tube and RT was called to advance 2.5-3cm & an OG tube in good position. Attending physician was present throughout.
[2016-10-07 06:43] LABS: Immature Granulocytes 14 % (0-9); Neutrophil % 76 % (38-83); Promyelocytes % 3 %; Reactive Lymph % 2 % (0-6)
[2016-10-07 06:44] LABS: Hypochromasia 2+; Polychromasia 1+
[2016-10-07] MEDS ORDERED: Pantoprazole IV* 40 MG IV SCH (08:00)
--- NOTE | 2016-10-07 08:29 | RAD ---
INDICATION: Intubation COMPARISON: Chest x-ray October 06, 2016 TECHNIQUE: Single AP portable view of the chest was obtained. FINDINGS: Image quality is compromised due to the relative inferiority of a portable chest x-ray. Again seen is a right neck central line with the tip terminating at the cavoatrial junction. There is a gastric tube that terminates below the level of the diaphragm overlying the left upper abdomen. There has been interval placement of an endotracheal tube with the tip terminating 1.5 cm above the clavicular head. Again seen is cardiomegaly and density obscuring the bilateral lung bases. There is bilateral costophrenic angle blunting. Visualized bones are normal for the patient's age. IMPRESSION: 1. Interval placement of an endotracheal tube with the tip terminating 1.5 cm above the clavicular head. Please correlate to ventilation parameters and advance the endotracheal tube if necessary. 2. Densities obscuring the bilateral lung bases likely represent a combination of pleural effusion and consolidation.
--- NOTE | 2016-10-07 08:58 | PN ---
Progress Note - Progress Note Note: Progress Note - Critical Care Overnight events: -upgraded to ICU, pressors started, NIV started. CT abd done with unclear etiology for sepsis/shock. Overnight more tachypneic and intubated. Made DNR by family. currently intubated on vent, pressors continued with no further escalation. Tele: Afib, rate controlled Vitals: Vital Signs Temp 99.1 F 10/07/16 08:45 Pulse 85 10/07/16 08:45 Resp 26 10/07/16 08:47 BP 98/51 10/07/16 08:00 Pulse Ox 100 10/07/16 08:45 Intake & Output 10/06/16 10/07/16 10/07/16 18:59 06:59 18:59 Intake Total 0 1748 Output Total 200 1040 Balance -200 708 Weight 186 lb 199 lb 4.766 oz Intake: IV Fluids 741 NS w/ Abx 21 Sodium Bicarb 720 IVPB 434 NS w/ Abx 434 Medicated IV 573 CC - Norepinephrine/ 530 Levophed CC - Vasopressin/ 43 Pitressin Oral 0 Output: NG Tube Drainage Amount 800 Urine 200 Lopez 100 Residual 140 Lopez 16 Fr Temperature 140 Probe Other: # Voids 1 O2/Vent: 28/400/+5/75%, sat 99%, rr 28 Infusions: levophed 8mcg/min, vaso 2.4u/hr; 150meq nabicarb in d5w @ 125cc/hr Current Medications: Acetaminophen (Tylenol Tab*) 650 mg PO Q4H PRN PRN Reason: FEVER/PAIN Last Admin: 10/06/16 14:57 Dose: 650 mg Dextrose (D50w Syringe 50 Ml*) 25 gm IV PUSH ONCE PRN PRN Reason: FS < 60 Last Admin: 10/06/16 23:00 Dose: 25 gm Hydrocortisone Sodium Succinate (Solu-Cortef*) 50 mg IV Q8H RODRIGO Last Admin: 10/07/16 04:40 Dose: 50 mg Norepinephrine Bitartrate (Levophed 16 Mcg/Ml Premix Bag*) 4,000 mcg in 250 mls @ 18.75 mls/hr IV .INITIAL RATE RODRIGO; 5 MCG/MIN PRN Reason: Protocol Last Admin: 10/07/16 05:49 Dose: 75 mls/hr Vasopressin 100 units/ (Dextrose) 250 mls @ 6 mls/hr IVPB .(Initial Rate) [facility] PRN Reason: 0.04 UNITS/MIN Last Admin: 10/06/16 22:53 Dose: 6 mls/hr Sodium Bicarbonate 150 meq/ (Dextrose) 1,150 mls @ 125 mls/hr IVPB .Q24H [facility] Last Admin: 10/07/16 00:12 Dose: 125 mls/hr Piperacillin Sod/Tazobactam (Sod 3.375 gm/ Sodium Chloride) 100 mls @ 25 mls/ hr IVPB Q12H [facility] Last Admin: 10/07/16 04:38 Dose: 25 mls/hr Ondansetron HCl (Zofran Inj*) 4 mg IV Q4H PRN PRN Reason: NAUSEA/VOMITING Last Admin: 10/04/16 03:25 Dose: 4 mg Ondansetron HCl (Zofran Odt Tab*) 4 mg SL Q6H PRN PRN Reason: NAUSEA/VOMITING Oxycodone HCl (Roxycodone Tab*) 5 mg PO Q4H PRN PRN Reason: PAIN Pantoprazole Sodium (Protonix Iv*) 40 mg IV Q24H [facility] Pharmacy Consult (Zosyn Per Pharmacy*) 1 note FOLLOW UP .ZOSYN PER PHARMACY [facility] Pharmacy Consult (Vancomycin Per Pharmacy*) 1 note FOLLOW UP . PRN PRN Reason: PER PROTOCOL Pharmacy Consult (Vancomycin Random Level*) 1 note FOLLOW UP 0100 ONE Stop: 10/08/16 01:01 Prochlorperazine Edisylate (Compazine Inj*) 5 mg IV Q6H PRN PRN Reason: NAUSEA/VOMITING Last Admin: 10/06/16 05:30 Dose: 5 mg Sucralfate (Carafate*) 1 gm PO 0600,1100,1600,2100 [facility] Last Admin: 10/07/16 05:52 Dose: Not Given Physical Exam: General: intubated, not well responsive, tachypneic over vent Head: normocephalic, atraumatic HEENT: +pallor, no icterus, dry mucous membranes Neck: soft, supple, no jvd, no stridor CVS: normal rate, regular rhythm, no murmur Resp: bilateral air entry, rhales right base+, no wheeze, no rhonchi, no acc muscle use Abdomen: soft, no guarding/rigidity, nondistended, BS decreased Ext: pulses feeble but present, cool ext, no edema Skin: intact, no breakdown, no dryness Neuro: intubated, opens eyes to deep stimuli Labs: Laboratory Results - last 24 hr 10/06/16 10/06/16 10/06/16 17:40 19:10 19:10 WBC RBC Hgb 8.0 L Hct 27 L MCV MCH MCHC RDW Plt Count MPV Immature Gran % (Auto) Neut % (Auto) Lymph % (Auto) Burt % (Auto) Eos % (Auto) Baso % (Auto) Absolute Neuts (auto) Absolute Lymphs (auto) Absolute Monos (auto) Absolute Eos (auto) Absolute Basos (auto) Absolute Nucleated RBC Neutrophils % Band Neutrophils % Lymphocytes % Reactive Lymphs % Monocytes % Promyelocytes % Nucleated RBC % Nucleated RBCs/100 WBC Normal RBC Morphology Polychromasia Hypochromasia Patient Temperature ABG pH ABG pCO2 ABG pO2 ABG HCO3 ABG O2 Saturation ABG Base Excess VBG pH VBG pCO2 VBG pO2 VBG HCO3 VBG O2 Saturation VBG Base Excess Respiration Rate O2 Delivery Device Ventilator Type Vent Mode FiO2 Inspiratory Time PEEP Pressure Support Pressure Control EPAP IPAP BiPAP Sodium Potassium Chloride Carbon Dioxide Anion Gap BUN Creatinine Est GFR ( Amer) Est GFR (Non-Af Amer) BUN/Creatinine Ratio Glucose POC Glucose (mg/dL) 169 H Lactic Acid 9.2 H* Calcium Total Creatine Kinase Troponin I Amylase Urine Color Urine Appearance Urine pH Ur Specific [employer] [place] Urine Protein Urine Ketones Urine Blood Urine Nitrate Urine Bilirubin Urine Urobilinogen Ur Leukocyte Esterase Urine WBC (Auto) Urine RBC (Auto) Urine Bacteria Urine Glucose 10/06/16 10/06/16 10/06/16 19:10 19:14 22:21 WBC RBC Hgb Hct MCV MCH MCHC RDW Plt Count MPV Immature Gran % (Auto) Neut % (Auto) Lymph % (Auto) Burt % (Auto) Eos % (Auto) Baso % (Auto) Absolute Neuts (auto) Absolute Lymphs (auto) Absolute Monos (auto) Absolute Eos (auto) Absolute Basos (auto) Absolute Nucleated RBC Neutrophils % Band Neutrophils % Lymphocytes % Reactive Lymphs % Monocytes % Promyelocytes % Nucleated RBC % Nucleated RBCs/100 WBC Normal RBC Morphology Polychromasia Hypochromasia Patient Temperature ABG pH 7.33 L ABG pCO2 17 L* ABG pO2 198 H ABG HCO3 13.0 L ABG O2 Saturation 97.2 ABG Base Excess -15.3 L VBG pH 7.07 L VBG pCO2 31 L VBG pO2 35 VBG HCO3 9.0 L VBG O2 Saturation 53.9 L VBG Base Excess -19.6 L Respiration Rate O2 Delivery Device Ventilator Type Vent Mode FiO2 Inspiratory Time PEEP Pressure Support Pressure Control EPAP IPAP BiPAP Sodium 128 L Potassium 6.2 H* D Chloride 102 Carbon Dioxide 9 L* Anion Gap 17 H BUN 82 H Creatinine 3.22 H Est GFR ( Amer) 17.6 Est GFR (Non-Af Amer) 13.7 BUN/Creatinine Ratio 25.5 H Glucose 109 H POC Glucose (mg/dL) Lactic Acid Calcium 7.9 L Total Creatine Kinase Troponin I 0.07 H* Amylase Urine Color Urine Appearance Urine pH Ur Specific [place] Urine Protein Urine Ketones Urine Blood Urine Nitrate Urine Bilirubin Urine Urobilinogen Ur Leukocyte Esterase Urine WBC (Auto) Urine RBC (Auto) Urine Bacteria Urine Glucose 10/06/16 10/06/16 10/06/16 23:24 23:24 23:24 WBC RBC Hgb Hct MCV MCH MCHC RDW Plt Count MPV Immature Gran % (Auto) Neut % (Auto) Lymph % (Auto) Burt % (Auto) Eos % (Auto) Baso % (Auto) Absolute Neuts (auto) Absolute Lymphs (auto) Absolute Monos (auto) Absolute Eos (auto) Absolute Basos (auto) Absolute Nucleated RBC Neutrophils % Band Neutrophils % Lymphocytes % Reactive Lymphs % Monocytes % Promyelocytes % Nucleated RBC % Nucleated RBCs/100 WBC Normal RBC Morphology Polychromasia Hypochromasia Patient Temperature ABG pH ABG pCO2 ABG pO2 ABG HCO3 ABG O2 Saturation ABG Base Excess VBG pH 7.33 VBG pCO2 28 L VBG pO2 32 L VBG HCO3 16.5 L VBG O2 Saturation 58.6 L VBG Base Excess -10.1 L Respiration Rate O2 Delivery Device Ventilator Type Vent Mode FiO2 Inspiratory Time PEEP Pressure Support Pressure Control EPAP IPAP BiPAP Sodium 137 D Potassium 4.7 D Chloride 103 Carbon Dioxide 14 L* Anion Gap 20 H BUN 83 H Creatinine 3.18 H Est GFR ( Amer) 17.8 Est GFR (Non-Af Amer) 13.9 BUN/Creatinine Ratio 26.1 H Glucose 153 H POC Glucose (mg/dL) Lactic Acid 10.4 H* Calcium 7.4 L Total Creatine Kinase 71 Troponin I 0.07 H* Amylase 230 H Urine Color Urine Appearance Urine pH Ur Specific [employer] [place] Urine Protein Urine Ketones Urine Blood Urine Nitrate Urine Bilirubin Urine Urobilinogen Ur Leukocyte Esterase Urine WBC (Auto) Urine RBC (Auto) Urine Bacteria Urine Glucose 10/07/16 10/07/16 10/07/16 00:35 02:15 02:27 WBC RBC Hgb Hct MCV MCH MCHC RDW Plt Count MPV Immature Gran % (Auto) Neut % (Auto) Lymph % (Auto) Burt % (Auto) Eos % (Auto) Baso % (Auto) Absolute Neuts (auto) Absolute Lymphs (auto) Absolute Monos (auto) Absolute Eos (auto) Absolute Basos (auto) Absolute Nucleated RBC Neutrophils % Band Neutrophils % Lymphocytes % Reactive Lymphs % Monocytes % Promyelocytes % Nucleated RBC % Nucleated RBCs/100 WBC Normal RBC Morphology Polychromasia Hypochromasia Patient Temperature Not Reportable ABG pH 7.10 L* ABG pCO2 29 L ABG pO2 103 H ABG HCO3 10.0 L ABG O2 Saturation 95.1 ABG Base Excess -19.1 L VBG pH VBG pCO2 VBG pO2 VBG HCO3 VBG O2 Saturation VBG Base Excess Respiration Rate Not Reportable O2 Delivery Device bipap Ventilator Type Not Reportable Vent Mode Not Reportable FiO2 Not Reportable Inspiratory Time Not Reportable PEEP Not Reportable Pressure Support Not Reportable Pressure Control Not Reportable EPAP Not Reportable IPAP Not Reportable BiPAP Not Reportable Sodium Potassium Chloride Carbon Dioxide Anion Gap BUN Creatinine Est GFR ( Amer) Est GFR (Non-Af Amer) BUN/Creatinine Ratio Glucose POC Glucose (mg/dL) Lactic Acid 12.6 H* Calcium Total Creatine Kinase Troponin I Amylase Urine Color Urine Appearance Cloudy Urine pH 5.0 Ur Specific [place] 1.015 Urine Protein Negative Urine Ketones Negative Urine Blood Negative Urine Nitrate Negative Urine Bilirubin Negative Urine Urobilinogen Negative Ur Leukocyte Esterase 1+ H Urine WBC (Auto) Trace(0-5/hpf) Urine RBC (Auto) Absent Urine Bacteria 3+ H Urine Glucose Negative 10/07/16 10/07/16 10/07/16 04:30 05:00 05:00 WBC 11.3 H RBC 2.48 L Hgb 6.6 L Hct 22 L MCV 89 MCH 27 MCHC 30 L RDW 16 H Plt Count 291 MPV 9 Immature Gran % (Auto) 14 H Neut % (Auto) 93.2 H Lymph % (Auto) 2.0 L Burt % (Auto) 3.9 Eos % (Auto) 0.2 Baso % (Auto) 0.7 Absolute Neuts (auto) 10.5 H Absolute Lymphs (auto) 0.2 L Absolute Monos (auto) 0.4 Absolute Eos (auto) 0 Absolute Basos (auto) 0.1 Absolute Nucleated RBC 0.71 Neutrophils % 76 Band Neutrophils % 11 H Lymphocytes % 3 L Reactive Lymphs % 2 Monocytes % 5 Promyelocytes % 3 Nucleated RBC % 6.3 Nucleated RBCs/100 WBC 6 H Normal RBC Morphology Not Reportable Polychromasia 1+ Hypochromasia 2+ Patient Temperature ABG pH 7.32 L ABG pCO2 23 L ABG pO2 82 ABG HCO3 14.8 L ABG O2 Saturation 95.5 ABG Base Excess -13.0 L VBG pH VBG pCO2 VBG pO2 VBG HCO3 VBG O2 Saturation VBG Base Excess Respiration Rate O2 Delivery Device Ventilator Type Vent Mode FiO2 Inspiratory Time PEEP Pressure Support Pressure Control EPAP IPAP BiPAP Sodium 139 Potassium 5.3 H Chloride 103 Carbon Dioxide 14 L* Anion Gap 22 H BUN 83 H Creatinine 3.25 H Est GFR ( Amer) 17.4 Est GFR (Non-Af Amer) 13.5 BUN/Creatinine Ratio 25.5 H Glucose 90 POC Glucose (mg/dL) Lactic Acid Calcium 7.1 L Total Creatine Kinase Troponin I Amylase Urine Color Urine Appearance Urine pH Ur Specific [employer] [place] Urine Protein Urine Ketones Urine Blood Urine Nitrate Urine Bilirubin Urine Urobilinogen Ur Leukocyte Esterase Urine WBC (Auto) Urine RBC (Auto) Urine Bacteria Urine Glucose 10/07/16 05:00 WBC RBC Hgb Hct MCV MCH MCHC RDW Plt Count MPV Immature Gran % (Auto) Neut % (Auto) Lymph % (Auto) Burt % (Auto) Eos % (Auto) Baso % (Auto) Absolute Neuts (auto) Absolute Lymphs (auto) Absolute Monos (auto) Absolute Eos (auto) Absolute Basos (auto) Absolute Nucleated RBC Neutrophils % Band Neutrophils % Lymphocytes % Reactive Lymphs % Monocytes % Promyelocytes % Nucleated RBC % Nucleated RBCs/100 WBC Normal RBC Morphology Polychromasia Hypochromasia Patient Temperature ABG pH ABG pCO2 ABG pO2 ABG HCO3 ABG O2 Saturation ABG Base Excess VBG pH VBG pCO2 VBG pO2 VBG HCO3 VBG O2 Saturation VBG Base Excess Respiration Rate O2 Delivery Device Ventilator Type Vent Mode FiO2 Inspiratory Time PEEP Pressure Support Pressure Control EPAP IPAP BiPAP Sodium Potassium Chloride Carbon Dioxide Anion Gap BUN Creatinine Est GFR ( Amer) Est GFR (Non-Af Amer) BUN/Creatinine Ratio Glucose POC Glucose (mg/dL) Lactic Acid 13.5 H* Calcium Total Creatine Kinase Troponin I Amylase Urine Color Urine Appearance Urine pH Ur Specific [employer] [place] Urine Protein Urine Ketones Urine Blood Urine Nitrate Urine Bilirubin Urine Urobilinogen Ur Leukocyte Esterase Urine WBC (Auto) Urine RBC (Auto) Urine Bacteria Urine Glucose Imaging: CT head 10/06 reviewed HIDA 10/06 reviewed Mesenteric Duplex 10/[address] abd 10/03 - reviewed Ct abd/pelvis 10/06 pm - no pneumatosis, no perforation. small bowels distended with colon collapsed; ?early SBO?; RLL infiltrate/consolidation with small effusion+ cxr 10/07 - ett above rohit; Right>Left consolidation, less on left base, right pleural effusion+ Assessment: 86y F pmhx of AF (off warfarin for recent GI bleed), Polymyalgia rheumatic, h/o CVA in past, CKD 3, HTN; [place] [facility] and found to have acute gastritis, warfarin stopped on discharge. Comes in now for abdominal pain. Workup ongoing, developed shortness of breath and hypotension with lactic acidosis. -Acute Hypoxic Respiratory Failure -Septic Shock -Acute abdomen, suspected ischemic colitis? -Bilateral lower lobe pneumonias -ADALGISA on CKD -Lactic Acidosis -Hyperkalemia -Delirium, metabolic/toxic -Acute blood loss anemia Plan: Neuro- neurochecks, asp prec. CT head neg for acute pathology. delirium prec. start fentanyl for sedation CVS- septic shock from acute abdominal cause vs bilateral pneumonia. No clearing of lactic acid despite IVF rescucitation and Pressors support. This may be coming from an abdominal source, CPK was negative. CT abd/pelvis reviewed , no acute pathology noted. Surgical consult reviewed, high risk and patient was lucid last night and explained of all findings and stated she did not want surgery. Levophed and vasopresisn for hemodyn support. INcreased hydrocortisone 50mg q8h to 100mg q8h for stress response. IV NaBic 150meq in d5w @ 125cc/hr. Making urine, positive balance. Afib is rate controlled. hold BB and antihypertensives for shock. Off AC/antiplatelets. Resp- Intubated, AC, rate 28 to compensate for met acidosis. fio2 75%. CXR reviewed, newly forming basilar consolidations+. IV vanco and zosyn to cover for HCAP. sputum cultures pending. No wheezing. ID- was hypothermic, wbc 11 today. IV vanco (day#2) and IV zosyn (day#2) for HCAP pneumonia coverage and GI coverage. NPO. No diarrhea. Abd not anymore distended. NGT in place. GI- NPO. protonix IV. NGT+. CT abd/pelvis without acute obstruction/perforation/ pneumatosis. Lactic still elevated. CPK normal. No diarrhea. May have some distal portion of ischemic bowel we havent seen yet. Now dropping hg, check fobt again, no blood from GI track noted yet. Patient was lucid when I was there with Dr Valle, she refused to have surgery knowing that she is high risk in a shock state now, will need to be on a ventilator. Discussed with son also by overnight attending. Renal-ADALGISA on CKD, rising Cr. Nonoliguric. Likely 2/2 to pre-renal azotemia + shock +septic ATN now. Maintain lopez for hemodyn monitoring. Hyperkal was improved, this morning >5, repeat BMP in evening. Cont Bicarb 150meq in d5w infusion at 125cc/hr. Maintain Pressor support, MAP>65. Remains acidotic, lactic + Heme- acute drop in hg to 6.6, attempted to reach son who may be in transit, phone going to voicemail. Monitor and if increase in pressors will get second attending to sign off on transfusion. plt stable. hold all AC and antiplatelets. Endo- monitor FS Musculsk- bedrest Wounds- none Nutrition- NPO DVT prophylaxis: none at this time GI prophylaxis: PPI Central Line: right IJ 10/06 Arterial Line: right femoral 10/06 Lopez Cathetor: yes Disposition: ICU for septic shock, acute abdomen, bilateral pneumonia Code Status: DNR; discussion with son last night with hospitalist, discussed likelihood of decompensation given progressive decline. No surgical internvention now. He agreed to DNR measures as it would not benefit patient and would likely give further poor quality of life. Total Critical Care time is 45 minutes, excluding procedures/teaching Riki Suarez MD [employer] (Electronically Signed)
[2016-10-07] MEDS ORDERED: Hydrocortisone INJ* 100 MG VIAL ONE (09:06)
[2016-10-07 09:35] LABS: FIO2 75; Resp Rate 28
[2016-10-07 09:38] LABS: PCO2 Arterial 21 mmHg (35-45)
[2016-10-07] MEDS ORDERED: Sodium Bicarbonate 8.4% IV* 150 MEQ in D5W 1000 ML BAG* 1,000 ML IVPB SCH (10:00)
[2016-10-07] MEDS: fentaNYL* 50 MCG/ML 2 ML VIAL (100 MCG VIAL) IV SLOW PU PRN ×2 (10:25→15:49)
--- NOTE | 2016-10-07 11:17 | PN ---
Hospitalist Progress Note HOSPITALIST ADDENDUM Asked to provide two physician consent for blood transfusion. Mrs. Chen is an 86yo F with PMH of Afib, CVA, HTN, CKD, admitted on 10/03 with c /o abdominal pain, associated with anemia, worsening renal failure, progressing with renal failure, acidosis, requiring transfer to ICU and intubation. Under the care of Dr. Suarez now and he feels blood transfusion is indicated due to her 6.10/09 and severe sepsis. Her son is in transit from [place] at this time and not available to provide consent at the moment. I agree with Dr. Suarez's recommendation and consent was signed.
--- NOTE | 2016-10-07 11:48 | ECHO ---
Patient: ALLAN SANDOVAL [facility] Rec#: [id number] : 1930 Date: 10/07/2016 Age: 86y Height: 160.02 cm / 63.0 in Weight: 84.37 kg / 186.0 lbs Sex: F BSA: 1.88 Room#: ICU-2 Admit Date#: 10/04/2016 Type: Inpatient Referring: Lita Bennett DO Reading: Tanmay Orellana MD Steam Service Inspector: Naye Hathaway RDCS CC: Neville Caba MD Transthoracic Echocardiogram Indication: CHF BP: 113/50 HR: 81 Rhythm: A-Fib Indications Congestive Heart Failure Findings History: A-fib, CVA, HTN, CKD, polymyolgia rheumatica, recent GI bleed. Technical Comments: The study quality is fair. The study was technically limited due to the patient's inability to lay in the left lateral decubitus position. Completed at 1040. The study is technically limited due to patient being intubated and on a ventilator. Left Ventricle: The left ventricular chamber size is normal. Mild concentric left ventricular hypertrophy is observed. There is a focal wall motion abnormality present.The proximal inferior wall, inferior septal wall and low proximal posterolateral wall were moderate to severely hypokinetic. There is mild to moderately decreased left ventricular systolic function. The estimated ejection fraction is 35-40%. Visually estimated LVEF closer to 40 %. The assessment of diastolic function is non-diagnostic. Left Atrium: The left atrium is severely dilated. Right Ventricle: Moderator Band present. The right ventricular cavity size is normal. The right ventricular global systolic function is mildly to moderately reduced. Right Atrium: The right atrium is moderately dilated. Aortic Valve: The aortic valve is trileaflet. Mild aortic leaflet calcification is visualized. Systolic excursion of the aortic valve cusps is reduced. There is no evidence of aortic regurgitation. There is mild aortic stenosis. The highest aortic valve velocity was obtained with the standard probe from the A5C view. Mitral Valve: There is mitral annular calcification. The mitral valve leaflets are mildly thickened. There is moderate mitral regurgitation. Given the eccentricity of the regurgitant jet , the severity may be underestimated. The mitral regurgitant jet is posteriorly directed. The mitral regurgitant jet is eccentric. There is no evidence of mitral stenosis. Tricuspid Valve: The tricuspid valve leaflets are mildly thickened. There is moderate tricuspid regurgitation. Unable to estimate the right ventricular systolic pressure. There is no tricuspid stenosis. Pulmonic Valve: The pulmonic valve appears normal. There is trace to mild pulmonic regurgitation. There is no pulmonic stenosis. Pericardium: A trivial pericardial effusion is visualized. A pericardial fat pad is visualized. Aorta: There is mild dilatation of the ascending aorta. There is no dilatation of the aortic arch. There is no dilation of the aortic root. Pulmonary Artery: The main pulmonary artery appears normal. Venous: Unable to accurately comment on the size collapsibility of the IVC as the patient in known to be on mechanical ventilation. Conclusions Mild concentric left ventricular hypertrophy is observed. There is a focal wall motion abnormality presentas described above. There is mild to moderately decreased left ventricular systolic function. The estimated ejection fraction is 35-40%. Visually estimated LVEF closer to 40 %. There is moderate mitral regurgitation. Given the eccentricity of the regurgitant jet , the severity may be underestimated. There is moderate tricuspid regurgitation. There is trace to mild pulmonic regurgitation. A trivial pericardial effusion is visualized. Compared to [facility] report from 01/11/2006 the overall LV systolic function is worse([id number]%), the degree of tricuspid regurgitation is worse(was mild to moderate). No comment was made on prior report as to the left atrial size. he patient is noted to be in atrial fibrillation during this study. Measurements Name Value Normal Range RVIDd (AP) 2D 3.2 cm (0.9 - 2.6) RVDdMajor (2D) 3.3 cm (2.2 - 4.4) RAd ISD 4CH 5.9 cm (3.4 - 4.9) RA (A4C)W 4.4 cm (2.9 - 4.6) IVSd (2D) 1.2 cm (0.6 - 1) LVPWd (2D) 1.3 cm (0.6 - 1) LVIDd (2D) 4.7 cm (3.6 - 5.4) LVIDs (2D) 4.4 cm - LV FS (2D) 7 % (25 - 45) EF Teichholz (2D) 15 % - Aortic Annulus 1.8 cm (1.4 - 2.6) Ao root diameter (2D) 2.9 cm (2.1 - 3.5) Ascending Ao 3.5 cm (2.1 - 3.4) Aortic arch 2.8 cm (1.8 - 3.4) LA dimension (AP) 2D 5.4 cm (2.3 - 3.8) LAd ISD 4CH 7.3 cm (2.9 - 5.3) LA ISD 4CH W 6.2 cm (2.5 - 4.5) Name Value Normal Range LA ESV SP 4CH (A/L) 150 ml - LA ESV SP 2CH (A/L) 155 ml - LA ESV BP (A/L) 156 ml - LA ESV BP (A/L) index 83.22 ml/m2 - LA ESV SP 4CH (MOD) 140 ml - LA ESV SP 2CH (MOD) 148 ml - Name Value Normal Range MV E-wave Vmax 1.3 m/sec - MV deceleration time 208.8 msec - LV septal e' Vmax 0.05 m/sec - LV lateral e' Vmax 0.11 m/sec - LV E:e' septal ratio 26 ratio - LV E:e' lateral ratio 11.81 ratio - Name Value Normal Range AV Vmax 1.6 m/sec - AV VTI 33.8 cm - AV peak gradient 10.66 mmHg - AV mean gradient 5.72 mmHg - LVOT diameter 2 cm - LVOT Vmax 0.77 m/sec - LVOT VTI 18 cm - LVOT peak gradient 2.37 mmHg - LVOT mean gradient 1.18 mmHg - DOI (VTI) 0.53 ratio - DOI (Vmax) 0.5 ratio - MAR (continuity Vmax) 1.7 cm2 - MAR (continuity VTI) 1.6 cm2 - KACY Vmax 0.24 m/sec - Name Value Normal Range MR Vmax 5 m/sec - MR VTI 165.2 cm - Name Value Normal Range TR Vmax 2.3 m/sec - TR peak gradient 21 mmHg - IVC diameter 3 cm - Name Value Normal Range PV Vmax 0.5 m/sec - PV peak gradient 1.06 mmHg -
[2016-10-07 13:56] LABS: Hematocrit 22 % (35-47)
[2016-10-07 14:03] LABS: Comments Flag Yes
[2016-10-07 14:05] LABS: Hemoglobin 6.4 g/dl (12.0-16.0)
[2016-10-07 14:07] LABS: BUN/Creatinine Ratio 25.1 (8-20); EGFR African American 15.9 (>60); EGFR Non-African American 12.4 (>60)
[2016-10-07 14:09] LABS: Potassium 6.1 mmol/L (3.5-5.0)
[2016-10-07] MEDS ORDERED: Dextrose 50% Syringe 50 ML* 25 GM/50 ML SYRINGE IV PUSH PRN (14:12)
[2016-10-07] MEDS ORDERED: Insulin REGULAR(*) 1 UNITS UNIT IV PUSH ONE (14:12)
[2016-10-07 14:32] LABS: Vancomycin Random 10.6 mcg/mL
--- NOTE | 2016-10-07 15:46 | PN ---
Progress Note - Progress Note SOAP: Subjective: [] Events of last night reviewed. She was intubated last night and remains on pressors and is not responsive. Dr. Rangel discussed the situation with the patient's son and she has been made a DNR. Her son Keyon arrived today from [place] and I discussed her condition and prognosis and the fact that I did not feel that she was an operative candidate and also last night when she was quite lucid that she stated that she would not want emergency surgery that she would not be expected to survive. Today he agrees and also says that is his wish and he states that she had made discussed with him that she would not want heroic measures undertaken in a situation like this and he is comfortable and agrees with the decision made concerning her care.
[2016-10-07] MEDS ORDERED: HYDROmorphone* 1 MG/ML 1 ML SYR IV SLOW PU PRN (15:56)
[2016-10-07 16:03] VITALS: BP 110/50
--- NOTE | 2016-10-07 16:07 | PN ---
Progress Note - Progress Note Note: Family Discussion with son Keyon. We discussed current medical conditions of septic shock, pneumonia, acute abdomen with suspected ischemic bowel, lactic acidosis, progressive Acute kidney injury, respiratory failure and encephelopathy. She is not a good surgical candidate given her comorbidities and current state, as well as the patients desire yesterday not to go to surgery when asked by Surgery while she was lucid, alert. Discussion by Surgeon with Keyon (HCP) was had and he understood the situation. He has expressed she would not want to be on machines to prolong her life especially when outcome would not change. He has expressed that she would want to go comfortably without tubes and a ventilator. He asked about options at this time - which include continued care with high likelihood of progression to further decompensation/cardiac arrest OR continuing current level of care without escalation OR compassionate weaning with goal of comfort care. He has confirmed DNR/DNI in any situation. Family has decided on not prolonging her situation in setting of multiorgan dysfunction and septic shock. They have wishes for compassionate weaning of ventilator and drips and to keep her as comfortable as possible, to prevent respiratory distress and pain. They understand she may have anywhere from minutes to hours once extubation and discontinuation of vasopressors is stopped. They have confirmed they understand the gravity and her prognosis. If she were to make it through septic shock she would have poor quality of life, especially when not a surgical candidate. They have asked for compassionate weaning. Nursing at bedside. We have all confirmed this. I believe this is the best decision for the patient given her current medical conditions and likely poor short term survival/poor outcome. We will start compassionate weaning -dilaudid prn for resp distress/pain q1h prn -ativan prn for resp distress -pastoral care services to be notified. -Family at bedside once process started -Goal to extubate first and then stop vasopressors -scopalamine patch if needed for secretions. Riki Suarez Instrument Calibrator
[2016-10-07] MEDS ORDERED: LORazepam INJ* 2 MG/ML 1 ML VIAL IV PUSH PRN (16:11)
--- NOTE | 2016-10-07 17:35 | PN ---
Progress Note - Progress Note Note: Patient pronounced after compassionate weaning at 1658 on 10/07/2016. Family aware and at bedside. Riki Suarez manager motor
--- NOTE | 2016-10-07 17:50 | DS ---
Discharge Summary Patient Name: ALLAN SANDOVAL : 1930 Date of Admission: 10/03/2016 Date of Discharge: 10/07/2016 Attending: Dr Lita Bennett Consultants: Dr Riki Suarez (Critical Care Medicine) Admitting Diagnoses: 1) Abdominal Pain Discharge Diagnoses: 1) Septic Shock 2) Ischemic Colitis 3) Pneumonia 4) Acute Respiratory Failure 2/2 to metabolic demands 5) Acute Kidney Injury 6) Hyperkalemia HPI/Hospital Course: 86y F pmhx of AF (off warfarin for recent GI bleed), Polymyalgia rheumatic, h/o CVA in past, CKD 3, HTN; recently in [facility] for GI bleed , presented with Hg of 6.1, transfused prbc. EGD was done showing gastritis. She was eventually discharged with a stable hg and off warfarin. She presented on 10/[address] abd/pelvis without contrast demonstrated only cholelithiasis, scattered diverticuli. A mesenteric arterial Doppler was done today and was negative for hemodynamically significant stenosis. A HIDA scan was ordered but was not able to be completed due patient condition. While on the medical floor patient developed respiratory distress. CXR was done showing mild pulm congestion and small Right pleural effusion. She was started on supplemental oxygen but remained tachypneic. She still has complaints of abd pain. She developed progressive hypotension requiring pressor support along with lactic acidosis, Acute kidney injury with associated respiratory distress. She was in septic shock 10/06. CT of abd/pelvis did not give information on an acute process which would cause this except for a RLL consolidation. She was subsequently intubated over the night of 10/06 in the early learning teacher hours of . A Surgical consult was obtained 10/06 but due to critical nature, unclear true etiology of sepsis as well as patient being very lucid and stating she did not want surgery, surgery was deemed not a good option. Discussion with son ( Keyon) was done on the phone, continued rescucitative efforts, intubated overnight, eventually made DNR. Lactic Acidosis persisted despite IVF and pressors. Once family arrived, they wished to follow her wishes of not being on a ventilator if she is likely to have a prolonged, protracted course with high likelihood of . They wished for compassionate weaning from the ventilator and comfort care, which was instituted. Patient 10/07/2016 at 1658 with family at bedside. Procedures/Imaging: Computer Tomography of the Abdomen and Pelvis, Arterial Duplex of the Mesenteric Vessels, Computer Tomography of the Brain. Discharge Medications: none Diet: none Activity: none Condition upon discharge: /; 1658 on 10/07/2016 Code Status: made DNR/comfort care by family Total Discharge time >30minutes Riki Suarez MD Assistant Chief Engineer (Electronically Signed)
[2016-10-08] MEDS ORDERED: Vancomycin Random Level* NOTE FOLLOW UP ONE (01:00)
== END 2016-10-07 16:58 | disposition expired | DRG 393 ==
LOC: ED 14:11 → MEDTELE 16:27 → OBSVTOIN 10-04 13:47 → MED 10-06 15:53 → ICU 10-06 18:01
PROVIDERS: ADMIT Internal Medicine; ATTEND Internal Medicine Critical Care Medicine
PROC: 05HP33Z Insertion of Infusion Device into Right External Jugular Vein, Percutaneous Approach (ICD-10-PCS; principal; 2016-10-06)
PROC: 3E033XZ Introduction of Vasopressor into Peripheral Vein, Percutaneous Approach (ICD-10-PCS; 2016-10-06)
PROC: 05HM33Z Insertion of Infusion Device into Right Internal Jugular Vein, Percutaneous Approach (ICD-10-PCS; 2016-10-06)
PROC: B543ZZA Ultrasonography of Right Jugular Veins, Guidance (ICD-10-PCS; 2016-10-06)
PROC: 04HK33Z Insertion of Infusion Device into Right Femoral Artery, Percutaneous Approach (ICD-10-PCS; 2016-10-06)
PROC: B44LZZZ Ultrasonography of Femoral Artery (ICD-10-PCS; 2016-10-06)
PROC: 5A09357 Assistance with Respiratory Ventilation, Less than 24 Consecutive Hours, Continuous Positive Airway Pressure (ICD-10-PCS; 2016-10-06)
PROC: 5A1935Z Respiratory Ventilation, Less than 24 Consecutive Hours (ICD-10-PCS; 2016-10-07)
PROC: 0BH17EZ Insertion of Endotracheal Airway into Trachea, Via Natural or Artificial Opening (ICD-10-PCS; 2016-10-07)
PROC: 0D9670Z Drainage of Stomach with Drainage Device, Via Natural or Artificial Opening (ICD-10-PCS; 2016-10-07)
PROC: 0T9B70Z Drainage of Bladder with Drainage Device, Via Natural or Artificial Opening (ICD-10-PCS; 2016-10-07)
PROC: 30243N1 Transfusion of Nonautologous Red Blood Cells into Central Vein, Percutaneous Approach (ICD-10-PCS; 2016-10-07)
DX: K55.9 Vascular disorder of intestine, unspecified (principal); J96.01 Acute respiratory failure with hypoxia; R65.21 Severe sepsis with septic shock; A41.9 Sepsis, unspecified organism; G93.40 Encephalopathy, unspecified; J90 Pleural effusion, not elsewhere classified; I95.9 Hypotension, unspecified; J18.1 Lobar pneumonia, unspecified organism; N17.9 Acute kidney failure, unspecified; D62 Acute posthemorrhagic anemia; E87.2 Acidosis; E78.00 Pure hypercholesterolemia, unspecified; I12.9 Hypertensive chronic kidney disease with stage 1 through stage 4 chronic kidney disease, or unspecified chronic kidney disease; M35.3 Polymyalgia rheumatica; I48.2 Chronic atrial fibrillation; K29.70 Gastritis, unspecified, without bleeding; K21.9 Gastro-esophageal reflux disease without esophagitis; N18.3 Chronic kidney disease, stage 3 (moderate); Z66 Do not resuscitate; E87.5 Hyperkalemia; R41.0 Disorientation, unspecified; R10.0 Acute abdomen; K80.80 Other cholelithiasis without obstruction; K57.30 Diverticulosis of large intestine without perforation or abscess without bleeding; Z51.5 Encounter for palliative care; Z86.73 Personal history of transient ischemic attack (TIA), and cerebral infarction without residual deficits; Z80.0 Family history of malignant neoplasm of digestive organs; Z72.89 Other problems related to lifestyle
CPT/HCPCS: 36415; 70450; 71010; 74176; 78226; 80048; 80053; 80202; 81003; 81015; 82150; 82550; 82803; 83036; 83605; 83690; 84484; 85014; 85018; 85025; 85027; 85610; 86140; 86850; 86900; 86901; 86922; 87040; 87077; 87086; 87186; 87205; 87641; 93005; 93306; 93975; 94002; 94003; 94660; 94760; A9270-GY; A9537; G0378; J0330; J0610; J0780; J1170; J1720; J2060; J2270; J2405; J2543; J3010; J3370; J7060; P9040